=== PATIENT | female | born 1950 | race African-American/Black ===

== ENCOUNTER → 2016-10-18 | Outpatient (CLI) | payer MEDICARE, OTHER ==
[2016-10-19 10:41] LABS: ALANINE AMINOTRANSFERASE 49 U/L (9-52); ALBUMIN 3.8 g/dL (3.5-5.0); ALKALINE PHOSPHATASE 59 U/L (38-126); ASPARTATE AMINO TRANSFERASE 45 U/L (14-36); BILIRUBIN,TOTAL 0.4 mg/dL (0.2-1.3); CHOLESTEROL 162.54 mg/dL (0-200); CREATINE KINASE 114 U/L (30-135); Direct HDL 72 mg/dL (>40); TOTAL PROTEIN 6.6 g/dL (6.3-8.2); TRIGLYCERIDES 61 mg/dL (<150)
[2016-10-19 10:52] LABS: DIRECT LDL 77 mg/dL (<100)
== END ==
LOC: OD 09:47
PROVIDERS: ATTEND Internal Medicine Cardiovascular Disease
DX: E78.00 Pure hypercholesterolemia, unspecified (principal); R25.2 Cramp and spasm; Z79.899 Other long term (current) drug therapy
CPT/HCPCS: 36415; 80061; 80076; 82550

== ENCOUNTER → 2016-11-17 | Outpatient (CLI) | payer MEDICARE, OTHER | LOC: WI 09:00 | PROVIDERS: ATTEND Physician Assistant Medical | DX: Z12.31 Encounter for screening mammogram for malignant neoplasm of breast (principal) | CPT/HCPCS: 77067; G0202 ==

== ENCOUNTER → 2016-11-23 | Outpatient (CLI) | payer MEDICARE, OTHER ==
[2016-11-23 11:18] LABS: Direct HDL 71 mg/dL (>40); TRIGLYCERIDES 76 mg/dL (<150)
[2016-11-23 11:22] LABS: ALBUMIN 4.2 g/dL (3.5-5.0); BILIRUBIN,TOTAL 0.6 mg/dL (0.2-1.3); TOTAL PROTEIN 6.8 g/dL (6.3-8.2)
[2016-11-23 11:39] LABS: DIRECT LDL 73 mg/dL (<100)
== END ==
LOC: OD 09:40
PROVIDERS: ATTEND Internal Medicine Cardiovascular Disease
DX: E78.00 Pure hypercholesterolemia, unspecified (principal); R94.5 Abnormal results of liver function studies
CPT/HCPCS: 36415; 80061; 80076

== ENCOUNTER 2017-02-10 13:00 | Emergency (ER) | payer MEDICARE, OTHER ==
--- NOTE | 2017-02-10 14:14 | ER Document Report ---
ED Medical Screen (RME) - General Mode of Arrival: Ambulatory Information source: Patient TRAVEL OUTSIDE OF THE [place] IN LAST 30 DAYS: No - HPI Patient complains to provider of: swelling <ISAIAH YE - Last Filed: 02/10/17 16:33> <SONALI JOHANSEN - Last Filed: 02/10/17 21:19> - General Chief Complaint: Feet Swelling Stated Complaint: FEET/ANKLE SWELLING Time Seen by Provider: 02/10/17 14:10 Notes: Patient presents to the ED complaining of bilateral feet swelling. Patient took a long road trip on 01/29 and has had swelling since, saw Dr. Frank who told her to come in because she has not had swelling problems in the past. Patient reports some chest discomfort recently but it resolved. Patient has hx of heart disease and has had open heart surgery. (ISAIAH YE) - Related Data Allergies/Adverse Reactions: No Known Allergies Allergy (Verified 02/10/17 13:57) Past Medical History - General Information source: Patient - Social History Cigarette use (# per day): No Chew tobacco use (# tins/day): No Frequency of alcohol use: None Drug Abuse: None Family history: Reviewed & Not Pertinent - Past Medical History Cardiac Medical History: Reports: Hx Coronary Artery Disease, Hx Hypercholesterolemia, Hx Hypertension Renal/ Medical History: Denies: Hx Peritoneal Dialysis GI Medical History: Reports: Hx Gastroesophageal Reflux Disease Musculoskeltal Medical History: Reports Hx Arthritis Past Surgical History: Reports: Hx Cardiac Surgery - open heart bypass, Hx Coronary Artery Bypass Graft, Hx Thyroid Surgery, Hx Tubal Ligation <ISAIAH YE - Last Filed: 02/10/17 16:33> Review of Systems - Review of Systems Cardiovascular: See HPI, Edema <ISAIAH YE - Last Filed: 02/10/17 16:33> Physical Exam - Respiratory Respiratory status: No respiratory distress Chest status: Nontender Breath sounds: Normal Chest palpation: Normal - Cardiovascular Pulses: Normal: Dorsalis pedis - Extremities General lower extremity: Edema - 2+ pitting edema to feet bilaterally not extending past ankles <ISAIAH YE - Last Filed: 02/10/17 16:33> Course - Laboratory Result Diagrams: 02/10/17 14:25 02/10/17 14:25 <ISAIAH YE - Last Filed: 02/10/17 16:33> - Laboratory Result Diagrams: 02/10/17 14:25 02/10/17 14:25 <SONALI JOHANSEN - Last Filed: 02/10/17 21:19> - Vital Signs Vital signs: Temp Pulse Resp BP Pulse Ox 97.5 F 59 L 16 147/72 H 99 02/10/17 17:31 02/10/17 17:31 02/10/17 17:31 02/10/17 17:31 02/10/17 17:31 - Laboratory Laboratory results interpreted by me: 02/10/17 14:25 BUN 22 H Est GFR (Non-Af Amer) 55 L AST 50 H Creatine Kinase 174 H Doctor's Discharge <ISAIAH YE - Last Filed: 02/10/17 16:33> <SONALI JOHANSEN - Last Filed: 02/10/17 21:19> - Discharge Clinical Impression: Peripheral edema, Hypertension Condition: Stable Disposition: HOME, SELF-CARE Instructions: Edema, Peripheral ([facility]) Additional Instructions: There is no evidence of blood clots in your legs, there is also no evidence of fluid overload due to heart failure. Please use compression stockings and keep your feet elevated. Please follow up with your primary care physician as outpatient, if the swelling in your legs is really bothering you, they may wish to consider starting a short course of Lasix or other fluid pill. Return for chest pain or trouble breathing. Referrals: JACQUELINE ARBOLEDA PA-C [Primary Care Provider] - Follow up as needed Scribe Documentation - Scribe Written by Syd:: syd Harris, 02/10/17, 1423 acting as scribe for :: Doreen <ISAIAH YE - Last Filed: 02/10/17 16:33>
[2017-02-10 14:42] LABS: ABSOLUTE MONOCYTES (AUTO) 0.5 10^3/uL (0.1-1.4); ABSOLUTE NEUT (AUTO) 2.9 10^3/uL (1.7-8.2); BASOPHILS % (AUTO) 0.7 % (0-2); EOSINOPHILS % (AUTO) 0.6 % (0-6); HEMATOCRIT 40.6 % (36.0-47.0); HEMOGLOBIN 13.2 g/dL (12.0-15.5); LYMPHOCYTES % (AUTO) 22.9 % (13-45); MEAN CORPUSCULAR HEMOGLOBIN 30.4 pg (27.0-33.4); MEAN CORPUSCULAR HGB CONC 32.6 g/dL (32.0-36.0); MEAN CORPUSCULAR VOLUME 94 fl (80-97); MONOCYTES % (AUTO) 10.8 % (3-13); RED BLOOD COUNT 4.34 10^6/uL (3.72-5.28); RED CELL DISTRIBUTION WIDTH 13.1 % (11.5-14.0); WHITE BLOOD COUNT 4.5 10^3/uL (4.0-10.5)
[2017-02-10 14:54] LABS: PROTHROMBIN TIME 12.2 SEC (11.4-15.4)
[2017-02-10 15:07] LABS: ALANINE AMINOTRANSFERASE 48 U/L (9-52); ALBUMIN 4.4 g/dL (3.5-5.0); ALKALINE PHOSPHATASE 78 U/L (38-126); ANION GAP 14 (5-19); ASPARTATE AMINO TRANSFERASE 50 U/L (14-36); BILIRUBIN,DIRECT 0.4 mg/dL (0.0-0.4); BILIRUBIN,TOTAL 0.7 mg/dL (0.2-1.3); BLOOD UREA NITROGEN 22 mg/dL (7-20); CALCIUM 10.1 mg/dL (8.4-10.2); CARBON DIOXIDE 28 mmol/L (22-30); CHLORIDE 103 mmol/L (98-107); CREATINE KINASE 174 U/L (30-135); CREATININE RESULT 1.01 mg/dL (0.52-1.25); GLUCOSE 83 mg/dL (75-110); POTASSIUM 4.5 mmol/L (3.6-5.0); SODIUM 144.7 mmol/L (137-145); TOTAL PROTEIN 7.6 g/dL (6.3-8.2)
[2017-02-10 15:25] LABS: CREATINE KINASE MB 1.66 ng/mL (<4.55)
[2017-02-10 15:33] LABS: TROPONIN I < 0.012 ng/mL
--- NOTE | 2017-02-10 16:34 | ER Document Report ---
ED Extremity Problem, Lower - General Mode of Arrival: Ambulatory Information source: Patient TRAVEL OUTSIDE OF THE [place] IN LAST 30 DAYS: No - HPI Patient complains to provider of: Swelling Location: Foot Associated symptoms: Other - See above <ISAIAH YE - Last Filed: 02/10/17 16:34> - HPI Associated symptoms: denies: Hurts to breath, Rapid heart rate, Short of breath , Sweaty <SONALI JOHANSEN - Last Filed: 02/10/17 21:20> - General Chief Complaint: Feet Swelling Stated Complaint: FEET/ANKLE SWELLING Time Seen by Provider: 02/10/17 14:10 Notes: Patient is a 66 year old female, with a past medical history including heart disease, who presents to the ED complaining of bilateral foot swelling. Patient took a long road trip on 01/29 to [place] and has had swelling since. Patient saw Dr. Frank who told her to come in because she has not had swelling problems in the past. Patient reports some chest discomfort recently but it has resolved. Patient has had open heart surgery. (ISAIAH YE) - Related Data Allergies/Adverse Reactions: No Known Allergies Allergy (Verified 02/10/17 13:57) Past Medical History - General Information source: Patient - Social History Smoking Status: Never Smoker Chew tobacco use (# tins/day): No Frequency of alcohol use: None Drug Abuse: None Family History: Reviewed & Not Pertinent Patient has suicidal ideation: No Patient has homicidal ideation: No - Past Medical History Cardiac Medical History: Reports: Hx Coronary Artery Disease, Hx Hypercholesterolemia, Hx Hypertension GI Medical History: Reports: Hx Gastroesophageal Reflux Disease Musculoskeltal Medical History: Reports Hx Arthritis Past Surgical History: Reports: Hx Cardiac Surgery - open heart bypass, Hx Coronary Artery Bypass Graft, Hx Thyroid Surgery, Hx Tubal Ligation - Immunizations Hx Pneumococcal Vaccination: 10/03/14 <ISAIAH YE - Last Filed: 02/10/17 16:34> Review of Systems - Review of Systems Constitutional: No symptoms reported EENT: No symptoms reported Cardiovascular: See HPI, Chest pain, Edema Respiratory: No symptoms reported Gastrointestinal: No symptoms reported Genitourinary: No symptoms reported Female Genitourinary: No symptoms reported Musculoskeletal: No symptoms reported Skin: No symptoms reported Hematologic/Lymphatic: No symptoms reported Neurological/Psychological: No symptoms reported -: Yes All other systems reviewed and negative <ISAIAH YE - Last Filed: 02/10/17 16:34> Physical Exam - Vital signs Interpretation: Normal - General General appearance: Appears well, Alert - HEENT Head: Normocephalic, Atraumatic - Respiratory Respiratory status: No respiratory distress Chest status: Nontender Breath sounds: Normal Chest palpation: Normal - Cardiovascular Rhythm: Regular Heart sounds: Normal auscultation Murmur: No Pulses: Normal: Dorsalis pedis - Back Back: Normal, Nontender - Extremities General upper extremity: Normal inspection General lower extremity: Edema - 2+ pitting edema bilaterally in feet no extending past ankle - Neurological Neuro grossly intact: Yes Cognition: Normal Orientation: AAOx4 [place] Coma Scale Eye Opening: Spontaneous [place] Coma Scale Verbal: Oriented [place] Coma Scale Motor: Obeys Commands [place] Coma Scale Total: 15 - Psychological Associated symptoms: Normal affect, Normal mood - Skin Skin Temperature: Warm Skin Moisture: Dry Skin Color: Normal <YEISAIAH - Last Filed: 02/10/17 16:34> Course - Laboratory Result Diagrams: 02/10/17 14:25 02/10/17 14:25 <ISAIAH YE - Last Filed: 02/10/17 16:34> - Laboratory Result Diagrams: 02/10/17 14:25 02/10/17 14:25 <SONALI JOHANSEN - Last Filed: 02/10/17 21:20> - Re-evaluation Re-evalutation: 02/10/17 16:40 CBC unremarkable, coags normal, CMP grossly unremarkable with only slightly elevated BUN, GFR normal for an -[place] female, cardiac enzymes negative, BNP normal. Venous Doppler does not show any signs of DVT. Chest x- ray does not show any vascular congestion. 02/10/17 16:41 No evidence of heart failure or DVT, likely dependent edema from this road trip. No chest pain noted, no evidence of acute coronary syndrome. Patient will be discharged home. (SONALI JOHANSEN) - Vital Signs Vital signs: Temp Pulse Resp BP Pulse Ox 97.5 F 59 L 16 147/72 H 99 02/10/17 17:31 02/10/17 17:31 02/10/17 17:31 02/10/17 17:31 02/10/17 17:31 - Laboratory Laboratory results interpreted by me: 02/10/17 14:25 BUN 22 H Est GFR (Non-Af Amer) 55 L AST 50 H Creatine Kinase 174 H - EKG Interpretation by Me Additional EKG results interpreted by me: 02/10/17 16:40 EKG shows sinus rhythm at a rate of 61, first-degree AV block, left ventricular hypertrophy, left axis deviation, no ST segment elevations or depressions, there are T wave inversions isolated in lead 3 per my interpretation. (SONALI JOHANSEN) Discharge <ISAIAH YE - Last Filed: 02/10/17 16:34> <SONALI JOHANSEN - Last Filed: 02/10/17 21:20> - Discharge Clinical Impression: Peripheral edema Hypertension Qualifiers: Hypertension type: essential hypertension Qualified Code(s): I10 - Essential ( primary) hypertension Condition: Stable Disposition: HOME, SELF-CARE Instructions: Edema, Peripheral ([facility]) Additional Instructions: There is no evidence of blood clots in your legs, there is also no evidence of fluid overload due to heart failure. Please use compression stockings and keep your feet elevated. Please follow up with your primary care physician as outpatient, if the swelling in your legs is really bothering you, they may wish to consider starting a short course of Lasix or other fluid pill. Return for chest pain or trouble breathing. Referrals: JACQUELINE ARBOLEDA PA-C [Primary Care Provider] - Follow up as needed Scribe Attestation: 02/10/17 21:20 I personally performed the services described in the documentation, reviewed and edited the documentation which was dictated to the scribe in my presence, and it accurately records my words and actions. (SONALI JOHANSEN) Scribe Documentation - Scribe Written by Syd:: syd Harris, 02/10/17, [id number] acting as scribe for :: Doreen <ISAIAH YE - Last Filed: 02/10/17 16:34>
[2017-02-10 17:40] VITALS: BP 147/72
--- NOTE | 2017-02-11 13:44 | EKG REPORT ---
SEVERITY:- ABNORMAL ECG - SINUS RHYTHM FIRST DEGREE AV BLOCK LEFT VENTRICULAR HYPERTROPHY : Confirmed by: Gina Vickers 11-Feb-2017 13:43:38
== END 2017-02-10 17:35 | disposition home or self-care (01) ==
LOC: ER 13:00
DX: R60.9 Edema, unspecified (principal); I10 Essential (primary) hypertension; I25.10 Atherosclerotic heart disease of native coronary artery without angina pectoris; E78.00 Pure hypercholesterolemia, unspecified; K21.9 Gastro-esophageal reflux disease without esophagitis; Z95.1 Presence of aortocoronary bypass graft; Z98.51 Tubal ligation status
CPT/HCPCS: 36415; 71020; 80053; 82550; 82553; 83880; 84484; 85025; 85610; 93005; 93010; 93970; 99284

== ENCOUNTER → 2017-06-28 | Outpatient (CLI) | payer MEDICARE, OTHER ==
[2017-06-28 11:02] LABS: ANION GAP 8 (5-19); BLOOD UREA NITROGEN 19 mg/dL (7-20); CARBON DIOXIDE 28 mmol/L (22-30); CHLORIDE 105 mmol/L (98-107); CHOLESTEROL 163.76 mg/dL (0-200); CREATININE RESULT 0.98 mg/dL (0.52-1.25); Direct HDL 61 mg/dL (>40); GLUCOSE 89 mg/dL (75-110); POTASSIUM 4.8 mmol/L (3.6-5.0); SODIUM 141.2 mmol/L (137-145); TRIGLYCERIDES 87 mg/dL (<150)
[2017-06-28 11:13] LABS: DIRECT LDL 78 mg/dL (<100)
== END ==
LOC: OD 08:54
PROVIDERS: ATTEND Internal Medicine Cardiovascular Disease
DX: E78.00 Pure hypercholesterolemia, unspecified (principal); R22.43 Localized swelling, mass and lump, lower limb, bilateral
CPT/HCPCS: 36415; 80048; 80061

== ENCOUNTER → 2017-07-26 | Outpatient (CLI) | payer MEDICARE, OTHER ==
--- NOTE | 2017-07-26 17:54 | WOMENS IMAGING REPORT ---
EXAM DESCRIPTION: 3D DX MAMMO BILAT; U/S BREAST UNILAT LIMITED COMPLETED DATE/TIME: 07/26/2017 8:42 am; 07/26/2017 9:09 am REASON FOR STUDY: MASTODYNIA; N64.4; LEFT BREAST LUMP N63.0 N64.4 MASTODYNIA COMPARISON: Multiple since 2008 TECHNIQUE: Standard craniocaudal and mediolateral oblique views of each breast recorded using digita l acquisition and breast tomosynthesis. Bilateral 90 mediolateral views. Because of a palpable abnormality in the left axilla, left upper o uter quadrant at axilla ultrasound was performed. LIMITATIONS: None. FINDINGS: RIGHT BREAST MASSES: No suspicious masses. CALCIFICATIONS: No new or suspicious calcifications. ARCHITECTURAL DISTORTION: None. DEVELOPING DENSITY: None. ASYMMETRY: None noted. OTHER: No other significant findings. LEFT BREAST MASSES: No suspicious masses. CALCIFICATIONS: No new or suspicious calcifications. ARCHITECTURAL DISTORTION: None. DEVELOPING DENSITY: None. ASYMMETRY: None noted. OTHER: No other significant finding. Read with the assistance of CAD: .[facility] - R2 Cenova Version 1.3 .[facility] Imaging - R2 Cenova Version 1.3 .[facility] - R2 Cenova Version 2.4 .[facility] Cenova Version 2.4 .[facility] - R2 Potato Seed Cutter Version 9.2 Left breast and axilla ultrasound: Ultrasound of the upper outer quadrant and left axilla was performed. No worrisome masses. No cysts . No acoustic absorption. Benign-appearing 10 x 6 mm and 15 x 8 mm lymph nodes are present in the l eft axilla, with normal cortical thickness and central hilar fat. IMPRESSION: No mammographic/tomosynthesis evidence for malignancy bilaterally. No ultrasound evidence for malignancy left axilla and upper outer quadrant breast. BREAST DENSITY: c. The breasts are heterogeneously dense, which may obscure small masses. BIRAD: 1 Negative. RECOMMENDATION: RECOMMENDED FOLLOW UP: Please continue yearly bilateral screening mammography/ tomos ynthesis in July 2018. SPECIFIC INTERVENTION/IMAGING/CONSULTATION RECOMMENDED:No additional intervention/ imaging/consultati on needed at this time. COMMUNICATION:Patient notified by letter COMMENT: The patient has been notified of the results by letter per MQSA requirements. Additional no tification policies are in place for contacting patient with suspicious or incomplete findings. Quality ID #[id number]: The [employer] recommends an annual screening mammogram for women aged 40 years or over. This facility utilizes a reminder system to ensure that all patients receive reminder letters, and/or direct phone calls for appointments. This includes reminders for routine scr eening mammograms, diagnostic mammograms, or other Breast Imaging Interventions when appropriate. Th is patient will be placed in the appropriate reminder system. The [employer] (ACR) has developed recommendations for screening MRI of the breast s in certain patient populations, to be used in conjunction with mammography. Breast MRI surveillanc e may be appropriate for women with more than 20% lifetime risk of developing breast cancer as deter mined by genetic testing, significant family history of the disease, or history of mantle radiation f or Hodgkins Disease. ACR Practice Guidelines 2008. DBT Technology DBT is a type of tomographic mammography. With conventional mammography, overlapping breast tissue ma y make lesions difficult to detect, even with good compression. DBT uses an x-ray tube that rotates a round the breast, taking images at different angles. These images are then combined to create thin sl ices of the breast that the radiologist can view as a 3D reconstruction. The [employer] unit can perform full-field digital mammograms (2D imaging); or DBT (3D imaging); or both, in a combination mode that quickly performs both the mammogram and the tomosynthesis scan while the breast is still compressed. PQRS 6045F: Fluoroscopic imaging is not utilized for breast tomosynthesis. TECHNICAL DOCUMENTATION: FINDING NUMBER: (1) ASSESSMENT: (1) JOB ID: [id number] [employer]- All Rights Reserved
--- NOTE | 2017-07-26 17:54 | WOMENS IMAGING REPORT ---
EXAM DESCRIPTION: 3D DX MAMMO BILAT; U/S BREAST UNILAT LIMITED COMPLETED DATE/TIME: 07/26/2017 8:42 am; 07/26/2017 9:09 am REASON FOR STUDY: MASTODYNIA; N64.4; LEFT BREAST LUMP N63.0 N64.4 MASTODYNIA COMPARISON: Multiple since 2008 TECHNIQUE: Standard craniocaudal and mediolateral oblique views of each breast recorded using digita l acquisition and breast tomosynthesis. Bilateral 90 mediolateral views. Because of a palpable abnormality in the left axilla, left upper o uter quadrant at axilla ultrasound was performed. LIMITATIONS: None. FINDINGS: RIGHT BREAST MASSES: No suspicious masses. CALCIFICATIONS: No new or suspicious calcifications. ARCHITECTURAL DISTORTION: None. DEVELOPING DENSITY: None. ASYMMETRY: None noted. OTHER: No other significant findings. LEFT BREAST MASSES: No suspicious masses. CALCIFICATIONS: No new or suspicious calcifications. ARCHITECTURAL DISTORTION: None. DEVELOPING DENSITY: None. ASYMMETRY: None noted. OTHER: No other significant finding. Read with the assistance of CAD: .[facility] - R2 Cenova Version 1.3 .[facility] Imaging - R2 Cenova Version 1.3 .[facility] Imaging - R2 Cenova Version 2.4 .[facility] - R2 Cenova Version 2.4 .[facility] - R2 Complaint Analyst Version 9.2 Left breast and axilla ultrasound: Ultrasound of the upper outer quadrant and left axilla was performed. No worrisome masses. No cysts . No acoustic absorption. Benign-appearing 10 x 6 mm and 15 x 8 mm lymph nodes are present in the l eft axilla, with normal cortical thickness and central hilar fat. IMPRESSION: No mammographic/tomosynthesis evidence for malignancy bilaterally. No ultrasound evidence for malignancy left axilla and upper outer quadrant breast. BREAST DENSITY: c. The breasts are heterogeneously dense, which may obscure small masses. BIRAD: 1 Negative. RECOMMENDATION: RECOMMENDED FOLLOW UP: Please continue yearly bilateral screening mammography/ tomos ynthesis in July 2018. SPECIFIC INTERVENTION/IMAGING/CONSULTATION RECOMMENDED:No additional intervention/ imaging/consultati on needed at this time. COMMUNICATION:Patient notified by letter COMMENT: The patient has been notified of the results by letter per MQSA requirements. Additional no tification policies are in place for contacting patient with suspicious or incomplete findings. Quality ID #[id number]: The [employer] recommends an annual screening mammogram for women aged 40 years or over. This facility utilizes a reminder system to ensure that all patients receive reminder letters, and/or direct phone calls for appointments. This includes reminders for routine scr eening mammograms, diagnostic mammograms, or other Breast Imaging Interventions when appropriate. Th is patient will be placed in the appropriate reminder system. The [employer] (ACR) has developed recommendations for screening MRI of the breast s in certain patient populations, to be used in conjunction with mammography. Breast MRI surveillanc e may be appropriate for women with more than 20% lifetime risk of developing breast cancer as deter mined by genetic testing, significant family history of the disease, or history of mantle radiation f or Hodgkins Disease. ACR Practice Guidelines 2008. DBT Technology DBT is a type of tomographic mammography. With conventional mammography, overlapping breast tissue ma y make lesions difficult to detect, even with good compression. DBT uses an x-ray tube that rotates a round the breast, taking images at different angles. These images are then combined to create thin sl ices of the breast that the radiologist can view as a 3D reconstruction. The [employer] unit can perform full-field digital mammograms (2D imaging); or DBT (3D imaging); or both, in a combination mode that quickly performs both the mammogram and the tomosynthesis scan while the breast is still compressed. PQRS 6045F: Fluoroscopic imaging is not utilized for breast tomosynthesis. TECHNICAL DOCUMENTATION: FINDING NUMBER: (1) ASSESSMENT: (1) JOB ID: [id number] [employer]- All Rights Reserved
== END ==
LOC: WI 08:16
PROVIDERS: ATTEND Physician Assistant Medical
DX: N64.4 Mastodynia (principal)
CPT/HCPCS: 76642; G0279; G0204; 77062; 77066

== ENCOUNTER → 2017-12-29 | Outpatient (CLI) | payer MEDICARE, OTHER ==
[2017-12-29 09:14] LABS: ALANINE AMINOTRANSFERASE 39 U/L (9-52); ALBUMIN 4.2 g/dL (3.5-5.0); ALKALINE PHOSPHATASE 69 U/L (38-126); ANION GAP 7 (5-19); ASPARTATE AMINO TRANSFERASE 36 U/L (14-36); BILIRUBIN,DIRECT 0.2 mg/dL (0.0-0.4); BILIRUBIN,TOTAL 0.4 mg/dL (0.2-1.3); BLOOD UREA NITROGEN 19 mg/dL (7-20); CALCIUM 9.6 mg/dL (8.4-10.2); CARBON DIOXIDE 30 mmol/L (22-30); CHLORIDE 107 mmol/L (98-107); CHOLESTEROL 159.78 mg/dL (0-200); GLUCOSE 88 mg/dL (75-110); POTASSIUM 4.3 mmol/L (3.6-5.0); TRIGLYCERIDES 82 mg/dL (<150)
[2017-12-29 09:25] LABS: DIRECT LDL 79 mg/dL (<100)
== END ==
LOC: OD 08:22
PROVIDERS: ATTEND Internal Medicine Cardiovascular Disease
DX: I25.118 Atherosclerotic heart disease of native coronary artery with other forms of angina pectoris (principal); E78.00 Pure hypercholesterolemia, unspecified; I10 Essential (primary) hypertension; Z79.899 Other long term (current) drug therapy
CPT/HCPCS: 36415; 80048; 80061; 80076

== ENCOUNTER → 2018-06-21 | Outpatient (CLI) | payer MEDICARE, OTHER ==
[2018-06-21 10:05] LABS: HEMATOCRIT 38.4 % (36.0-47.0); HEMOGLOBIN 12.8 g/dL (12.0-15.5); MEAN CORPUSCULAR HEMOGLOBIN 30.7 pg (27.0-33.4); MEAN CORPUSCULAR HGB CONC 33.2 g/dL (32.0-36.0); MEAN CORPUSCULAR VOLUME 92 fl (80-97); PLATELET COUNT 184 10^3/uL (150-450); RED BLOOD COUNT 4.16 10^6/uL (3.72-5.28); RED CELL DISTRIBUTION WIDTH 13.5 % (11.5-14.0); WHITE BLOOD COUNT 5.2 10^3/uL (4.0-10.5)
[2018-06-21 10:20] LABS: ALANINE AMINOTRANSFERASE 40 U/L (9-52); ALBUMIN 4.1 g/dL (3.5-5.0); ALKALINE PHOSPHATASE 71 U/L (38-126); ANION GAP 6 (5-19); ASPARTATE AMINO TRANSFERASE 40 U/L (14-36); BILIRUBIN,DIRECT 0.4 mg/dL (0.0-0.4); BILIRUBIN,TOTAL 0.6 mg/dL (0.2-1.3); BLOOD UREA NITROGEN 16 mg/dL (7-20); CALCIUM 9.5 mg/dL (8.4-10.2); CARBON DIOXIDE 32 mmol/L (22-30); CHLORIDE 105 mmol/L (98-107); CHOLESTEROL 164.14 mg/dL (0-200); GLUCOSE 93 mg/dL (75-110); POTASSIUM 4.5 mmol/L (3.6-5.0); SODIUM 142.5 mmol/L (137-145); TRIGLYCERIDES 92 mg/dL (<150)
[2018-06-21 10:31] LABS: DIRECT LDL 80 mg/dL (<100)
== END ==
LOC: LAB 09:02
PROVIDERS: ATTEND Internal Medicine Cardiovascular Disease
DX: E78.00 Pure hypercholesterolemia, unspecified (principal); R00.2 Palpitations; Z79.899 Other long term (current) drug therapy
CPT/HCPCS: 36415; 80048; 80061; 80076; 83735; 84443; 85027

== ENCOUNTER → 2018-07-27 | Outpatient (CLI) | payer MEDICARE, OTHER ==
--- NOTE | 2018-07-27 14:39 | WOMENS IMAGING REPORT ---
EXAM DESCRIPTION: 3D SCREENING MAMMO BILAT COMPLETED DATE/TIME: 07/27/2018 10:34 am REASON FOR STUDY: ROUTINE SCREENING MAMMOGRAM Z12.31 Z12.31 ENCNTR SCREEN MAMMOGRAM FOR MALIGNANT N EOPLASM OF FELIZ COMPARISON: Multiple since 2008 TECHNIQUE: Standard craniocaudal and mediolateral oblique views of each breast recorded using digita l acquisition and breast tomosynthesis. LIMITATIONS: None. FINDINGS: No masses, calcifications or architectural distortion. No areas of suspicion. Read with the assistance of CAD. .[facility] - R2 Cenova Version 1.3 .[facility] Imaging - R2 Cenova Version 1.3 .[facility] Imaging - R2 Cenova Version 2.4 .[facility] [place] R2 Cenova Version 2.4 .[facility] - R2 Department [employer] Router Version 9.2 IMPRESSION: NORMAL MAMMOGRAM. BIRADS 1. BREAST DENSITY: c. The breasts are heterogeneously dense, which may obscure small masses. BIRAD: 1 NEGATIVE RECOMMENDATION: ROUTINE SCREENING Please continue yearly bilateral screening mammography/tomosynthesis in July 2019 COMMENT: The patient has been notified of the results by letter per [place] requirements. Additional no tification policies are in place for contacting patient with suspicious or incomplete findings. Quality ID #[id number]: The [employer] recommends an annual screening mammogram for women aged 40 years or over. This facility utilizes a reminder system to ensure that all patients receive reminder letters, and/or direct phone calls for appointments. This includes reminders for routine scr eening mammograms, diagnostic mammograms, or other Breast Imaging Interventions when appropriate. Th is patient will be placed in the appropriate reminder system. The [employer] (ACR) has developed recommendations for screening MRI of the breast s in certain patient populations, to be used in conjunction with mammography. Breast MRI surveillanc e may be appropriate for women with more than 20% lifetime risk of developing breast cancer as deter mined by genetic testing, significant family history of the disease, or history of mantle radiation f or Hodgkins Disease. ACR Practice Guidelines 2008. DBT Technology DBT is a type of tomographic mammography. With conventional mammography, overlapping breast tissue ma y make lesions difficult to detect, even with good compression. DBT uses an x-ray tube that rotates a round the breast, taking images at different angles. These images are then combined to create thin sl ices of the breast that the radiologist can view as a 3D reconstruction. The [employer] unit can perform full-field digital mammograms (2D imaging); or DBT (3D imaging); or both, in a combination mode that quickly performs both the mammogram and the tomosynthesis scan while the breast is still compressed. PQRS 6045F: Fluoroscopic imaging is not utilized for breast tomosynthesis. TECHNICAL DOCUMENTATION: FINDING NUMBER: (1) ASSESSMENT: (1) JOB ID: [id number] [employer]- All Rights Reserved Reading location - IP/workstation name: [facility]-2
== END ==
LOC: WI 11:37
PROVIDERS: ATTEND Physician Assistant Medical
DX: Z12.31 Encounter for screening mammogram for malignant neoplasm of breast (principal)
CPT/HCPCS: 77063; 77067

== ENCOUNTER 2018-08-10 16:51 | Emergency (ER) | payer MEDICARE, OTHER ==
[2018-08-10 17:08] VITALS: BP 166/61
[2018-08-10] MEDS ORDERED: LIDOCAINE 2% VISCOUS SOLN 20 ML UDCUP PO ONE (17:27)
[2018-08-10] MEDS ORDERED: MAG HYDROX/AL HYDROX/SIMETH SUSP 30 ML UDCUP PO ONE (17:27)
[2018-08-10] MEDS ORDERED: METOCLOPRAMIDE HCL ORAL SOLN 10 MG/10 ML UDCUP PO ONE (17:27)
--- NOTE | 2018-08-10 17:39 | ER Document Report ---
ED GI/ - General Chief Complaint: Epigastric Pain Stated Complaint: ABDOMINAL PAIN Time Seen by Provider: 08/10/18 17:27 Mode of Arrival: Ambulatory Information source: Patient Notes: Chief complaint: abdominal pain: History of complain:( obtained from----patient) 67 years old female with a history of GERD, not taking omeprazole, just prior to arrival about an hour and a half , developed sharp epigastric pain moderate to severe in intensity therefore present to the ED. Denies any nausea vomiting diarrhea. Denies any fever chills or other constitutional symptoms. Onset: Sudden Duration: Few hours Severity: Severe Quality: Sharp Context: Good Exacerbating factor and relieving factors: Eating REVIEW OF SYSTEMS: CONSTITUTIONAL : Denies fever, chills, or sweats. Denies recent illness. EENT: Denies eye, ear, throat, or mouth pain or symptoms. Denies nasal or sinus congestion or discharge. Denies throat, tongue, or mouth swelling or difficulty swallowing. CARDIOVASCULAR: Denies chest pain. Denies palpitations or racing or irregular heart beat. Denies ankle edema. RESPIRATORY: Denies cough, cold, or chest congestion. Denies shortness of breath, difficulty breathing, or wheezing. GASTROINTESTINAL: Denies distention. Denies nausea, vomiting, or diarrhea. Denies blood in vomitus, stools, or per rectum. Denies black, tarry stools. Denies constipation. GENITOURINARY: Denies difficulty urinating, painful urination, burning, frequency, blood in urine, or discharge. FEMALE GENITOURINARY: Denies vaginal bleeding, heavy or abnormal periods, irregular periods. Denies vaginal discharge or odor. MUSCULOSKELETAL: Denies back or neck pain or stiffness. Denies joint pain or swelling. SKIN: Denies rash, lesions or sores. HEMATOLOGIC : Denies easy bruising or bleeding. LYMPHATIC: Denies swollen, enlarged glands. NEUROLOGICAL: Denies confusion or altered mental status. Denies passing out or loss of consciousness. Denies dizziness or lightheadedness. Denies headache. Denies weakness or paralysis or loss of use of either side. Denies problems with gait or speech. Denies sensory loss, numbness, or tingling. Denies seizures. PSYCHIATRIC: Denies anxiety or stress. Denies depression, suicidal ideation, or homicidal ideation. ALL OTHER SYSTEMS REVIEWED AND NEGATIVE. PHYSICAL EXAMINATION: GENERAL: Well-appearing, well-nourished and in no acute distress. HEAD: Atraumatic, normocephalic. EYES: Pupils equal round and reactive to light, extraocular movements intact, conjunctiva are normal. ENT: Nares patent, oropharynx clear without exudates. Moist mucous membranes. NECK: Normal range of motion, supple without lymphadenopathy LUNGS: Breath sounds clear to auscultation bilaterally and equal. No wheezes rales or rhonchi. HEART: Regular rate and rhythm without murmurs ABDOMEN: Soft, epigastric tenderness noted, nondistended abdomen. No guarding, no rebound. No masses appreciated. Female : deferred Musculoskeletal: Normal range of motion, no pitting or edema. No cyanosis. NEUROLOGICAL: Cranial nerves grossly intact. Normal speech, normal gait. Normal sensory, motor exams PSYCH: Normal mood, normal affect. SKIN: Warm, Dry, normal turgor, no rashes or lesions noted. Dictation was performed using [employer] voice recognition software TRAVEL OUTSIDE OF THE [place] IN LAST 30 DAYS: No - HPI Notes: 08/10/18 17:38 Dictated - Related Data Allergies/Adverse Reactions: No Known Allergies Allergy (Verified 08/10/18 16:54) Past Medical History - Social History Smoking Status: Never Smoker Frequency of alcohol use: Rare Lives with: Family Family History: Reviewed & Not Pertinent Patient has suicidal ideation: No Patient has homicidal ideation: No - Past Medical History Cardiac Medical History: Reports: Hx Coronary Artery Disease, Hx Hypercholesterolemia, Hx Hypertension Renal/ Medical History: Denies: Hx Peritoneal Dialysis GI Medical History: Reports: Hx Gastroesophageal Reflux Disease Musculoskeletal Medical History: Reports Hx Arthritis Past Surgical History: Reports: Hx Cardiac Surgery - open heart bypass, Hx Coronary Artery Bypass Graft, Hx Thyroid Surgery, Hx Tubal Ligation - Immunizations Hx Pneumococcal Vaccination: 10/03/14 Review of Systems - Review of Systems Notes: Dictated Physical Exam - Vital signs Vitals: Temp Pulse Resp BP Pulse Ox 97.9 F 45 L 20 166/61 H 100 08/10/18 17:06 08/10/18 17:06 08/10/18 17:06 08/10/18 17:06 08/10/18 17:06 - Notes Notes: Dictated Course - Re-evaluation Re-evalutation: 08/10/18 17:53 GI cocktail has completely relieved her abdominal pain. - Vital Signs Vital signs: Temp Pulse Resp BP Pulse Ox 97.9 F 45 L 20 166/61 H 100 08/10/18 17:06 08/10/18 17:06 08/10/18 17:06 08/10/18 17:06 08/10/18 17:06 Discharge - Discharge Clinical Impression: Gastritis Qualifiers: Gastritis type: other gastritis Chronicity: acute Gastritis bleeding: without bleeding Qualified Code(s): K29.00 - Acute gastritis without bleeding Condition: Fair Disposition: HOME, SELF-CARE Instructions: Gastritis ([facility]) Prescriptions: Lansoprazole [Prevacid 30 Mg Odt Tablet] 30 mg PO ACBRKFST #30 tab.rap. Sucralfate [Carafate 1 gm Tablet] 1 gm PO ACHS #120 tablet Referrals: JACQUELINE THAKUR PA-C [Primary Care Provider] - Follow up as needed
--- NOTE | 2018-08-10 18:17 | EKG REPORT ---
SEVERITY:- ABNORMAL ECG - SINUS RHYTHM FIRST DEGREE AV BLOCK LVH WITH SECONDARY REPOLARIZATION ABNORMALITY : Confirmed by: Grupo Frank MD 10-Aug-2018 18:17:07
== END 2018-08-10 18:00 | disposition home or self-care (01) ==
LOC: ER 16:51
DX: K29.00 Acute gastritis without bleeding (principal); R10.13 Epigastric pain; I25.10 Atherosclerotic heart disease of native coronary artery without angina pectoris; E78.00 Pure hypercholesterolemia, unspecified; I10 Essential (primary) hypertension; Z95.1 Presence of aortocoronary bypass graft; Z98.51 Tubal ligation status
CPT/HCPCS: 93005; 99284; 93010; J3490; A9270

== ENCOUNTER → 2018-09-05 | Outpatient (CLI) | payer MEDICARE, OTHER | LOC: OD 10:50 | PROVIDERS: ATTEND Physician Assistant Medical | DX: Z11.59 Encounter for screening for other viral diseases (principal) | CPT/HCPCS: 36415; 86803; 86804 ==

== ENCOUNTER → 2018-12-15 | Outpatient (CLI) | payer MEDICARE, OTHER ==
--- NOTE | 2018-12-15 12:26 | RADIOLOGY REPORT (SQ) ---
EXAM DESCRIPTION: CT ABDOMEN WITH IV ORAL CONT COMPLETED DATE/TIME: 12/15/2018 9:53 am REASON FOR STUDY: EPIGASTRIC PAIN R10.13 EPIGASTRIC PAIN COMPARISON: 06/10/2016 TECHNIQUE: CT scan of the abdomen performed with intravenous and oral contrast using helical scannin g technique with dynamic intravenous contrast injection. Images reviewed with lung, soft tissue, and bone windows. Reconstructed coronal and sagittal MPR images reviewed. Delayed images for evaluation o f the urinary system also acquired. All images stored on PACS. All CT scanners at this facility use dose modulation, iterative reconstruction, and/or weight based d osing when appropriate to reduce radiation dose to as low as reasonably achievable (ALARA). [facility]: Dose Right [facility]: CareDose [facility]: Dose Right [facility]: Teradose 4D [facility]: T[employer] Monster ([place]) CONTRAST TYPE AND DOSE: contrast/concentration: Isovue 350.00 mg/ml; Total Contrast Delivered: 85.0 ml; Total Saline Delivered: 69.0 ml RENAL FUNCTION: Creatinine 1.2 RADIATION DOSE: CT Rad equipment meets quality standard of care and radiation dose reduction techniq ues were employed. CTDIvol: 6.1 - 7.2 mGy. DLP: 406 mGy-cm. . LIMITATIONS: None. FINDINGS: LOWER CHEST: 7 mm nodule right lower lobe unchanged LIVER: Normal size. No masses. No dilated ducts. SPLEEN: Normal size. No focal lesions. PANCREAS: No masses. No significant calcifications. No adjacent inflammation or peripancreatic fluid collections. Pancreatic duct not dilated. GALLBLADDER: Gallstones. No inflammatory changes to suggest cholecystitis. ADRENAL GLANDS: No significant masses or asymmetry. RIGHT KIDNEY AND URETER: No solid masses. No significant calcifications. No hydronephrosis or hyd roureter. LEFT KIDNEY AND URETER: No solid masses. No significant calcifications. No hydronephrosis or hydr oureter. AORTA AND VESSELS: No aneurysm. RETROPERITONEUM: No retroperitoneal adenopathy, hemorrhage or masses. BOWEL AND PERITONEAL CAVITY: No obstruction. No visualized masses. No free fluid. No inflammatory ch anges or thickening of bowel wall. APPENDIX: Not visualized. PELVIS: Not imaged. ABDOMINAL WALL: No masses. No hernias. BONES: Nothing acute. OTHER: No other significant finding. IMPRESSION: Cholelithiasis. No acute findings. TECHNICAL DOCUMENTATION: JOB ID: [id number] Quality ID # [id number]: Final reports with documentation of one or more dose reduction techniques (e.g., Au tomated exposure control, adjustment of the mA and/or kV according to patient size, use of iterative reconstruction technique) 2010 [employer]- All Rights Reserved Reading location - IP/workstation name: [email or web address]
== END ==
LOC: RAD 09:05
PROVIDERS: ATTEND Internal Medicine Gastroenterology
DX: R10.13 Epigastric pain (principal)
CPT/HCPCS: 74160; 82565

== ENCOUNTER → 2018-12-19 | Outpatient (CLI) | payer MEDICARE, OTHER ==
[2018-12-19 09:45] LABS: HEMATOCRIT 37.8 % (36.0-47.0); HEMOGLOBIN 12.8 g/dL (12.0-15.5); MEAN CORPUSCULAR HEMOGLOBIN 30.7 pg (27.0-33.4); MEAN CORPUSCULAR HGB CONC 33.9 g/dL (32.0-36.0); MEAN CORPUSCULAR VOLUME 91 fl (80-97); PLATELET COUNT 181 10^3/uL (150-450); RED BLOOD COUNT 4.18 10^6/uL (3.72-5.28)
[2018-12-19 10:13] LABS: ALANINE AMINOTRANSFERASE 38 U/L (9-52); ALBUMIN 4.6 g/dL (3.5-5.0); ALKALINE PHOSPHATASE 76 U/L (38-126); ANION GAP 8 (5-19); ASPARTATE AMINO TRANSFERASE 39 U/L (14-36); BILIRUBIN,DIRECT 0.3 mg/dL (0.0-0.4); BILIRUBIN,TOTAL 0.6 mg/dL (0.2-1.3); BLOOD UREA NITROGEN 19 mg/dL (7-20); CALCIUM 9.8 mg/dL (8.4-10.2); CARBON DIOXIDE 29 mmol/L (22-30); CHLORIDE 103 mmol/L (98-107); CHOLESTEROL 165.24 mg/dL (0-200); GLUCOSE 89 mg/dL (75-110); POTASSIUM 4.2 mmol/L (3.6-5.0); SODIUM 139.8 mmol/L (137-145); TOTAL PROTEIN 7.2 g/dL (6.3-8.2); TRIGLYCERIDES 86 mg/dL (<150)
[2018-12-19 10:24] LABS: DIRECT LDL 85 mg/dL (<100)
== END ==
LOC: OD 08:38
PROVIDERS: ATTEND Internal Medicine Cardiovascular Disease
DX: E78.00 Pure hypercholesterolemia, unspecified (principal); I10 Essential (primary) hypertension; E03.9 Hypothyroidism, unspecified; Z79.899 Other long term (current) drug therapy
CPT/HCPCS: 36415; 80048; 80061; 80076; 84443; 85027

== ENCOUNTER → 2019-01-24 | Outpatient (CLI) | payer MEDICARE, OTHER ==
[2019-01-24 08:47] LABS: INTERNATIONAL RATION (INR) 0.85; PROTHROMBIN TIME 12.1 SEC (11.4-15.4)
== END ==
LOC: OD 07:19
PROVIDERS: ATTEND Internal Medicine Cardiovascular Disease
DX: I25.119 Atherosclerotic heart disease of native coronary artery with unspecified angina pectoris (principal); Z79.01 Long term (current) use of anticoagulants; Z79.899 Other long term (current) drug therapy
CPT/HCPCS: 36415; 85610; 85730

== ENCOUNTER 2019-03-09 05:26 | Day surgery (SDC) | payer MEDICARE, OTHER ==
[2019-03-01 09:30] LABS: HEMATOCRIT 38.3 % (36.0-47.0); HEMOGLOBIN 12.8 g/dL (12.0-15.5); MEAN CORPUSCULAR HEMOGLOBIN 30.7 pg (27.0-33.4); MEAN CORPUSCULAR HGB CONC 33.4 g/dL (32.0-36.0); MEAN CORPUSCULAR VOLUME 92 fl (80-97); PLATELET COUNT 175 10^3/uL (150-450); RED BLOOD COUNT 4.16 10^6/uL (3.72-5.28); RED CELL DISTRIBUTION WIDTH 13.5 % (11.5-14.0); WHITE BLOOD COUNT 5.1 10^3/uL (4.0-10.5)
[2019-03-01 10:00] LABS: ALANINE AMINOTRANSFERASE 35 U/L (9-52); ALBUMIN 4.5 g/dL (3.5-5.0); ALKALINE PHOSPHATASE 77 U/L (38-126); ANION GAP 10 (5-19); ASPARTATE AMINO TRANSFERASE 34 U/L (14-36); BILIRUBIN,DIRECT 0.3 mg/dL (0.0-0.4); BILIRUBIN,TOTAL 0.5 mg/dL (0.2-1.3); BLOOD UREA NITROGEN 16 mg/dL (7-20); CARBON DIOXIDE 28 mmol/L (22-30); CHLORIDE 105 mmol/L (98-107); GLUCOSE 88 mg/dL (75-110); SODIUM 142.8 mmol/L (137-145); TOTAL PROTEIN 7.4 g/dL (6.3-8.2)
[~2019-03-09 05:26] MED LIST: ACETAMINOPHEN 325 MG TABLET PO PRN; CEFOXITIN SODIUM 2 GM in DEXTROSE 5%-WATER 100 ML IV PRN; IBUPROFEN 800 MG in NORMAL SALINE 250 ML IV PRN; LACTATED RINGERS 1000 ML IV PRN; LIDOCAINE 0.5% INJ-PF (5 MG/ML) 50 ML SDV SUBCUT PRN; PREGABALIN 50 MG CAPSULE PO PRN
[2019-03-09] MEDS ORDERED: PREGABALIN 50 MG CAPSULE ONE (06:05)
[2019-03-09] MEDS ORDERED: ACETAMINOPHEN 325 MG TABLET ONE (06:05)
[2019-03-09] MEDS ORDERED: FENTANYL CITRATE INJ/PF 250 MCG/5 ML AMPULE ONE (06:30)
[2019-03-09] MEDS ORDERED: PROPOFOL INJ 200 MG/20 ML VIAL IV ONE (06:31)
[2019-03-09] MEDS ORDERED: MIDAZOLAM 2 MG/2 ML INJ ONE (06:31)
[2019-03-09] MEDS ORDERED: BUPIVACAINE HCL 0.25 % INJ/PF (2.5 MG/1 ML) 30 ML VIAL ONE (07:18)
[2019-03-09] MEDS ORDERED: DIPHENHYDRAMINE HCL 50 MG/ML VIAL IV PRN (08:06)
[2019-03-09] MEDS ORDERED: MORPHINE SULFATE 10 MG/ML INJ IV PRN (08:06)
[2019-03-09] MEDS ORDERED: MEPERIDINE HCL/PF INJ 25 MG/1 ML DISP.SYRIN IV PRN (08:06)
[2019-03-09] MEDS ORDERED: OXYCODONE-ACETAMINOPHEN 5-325 MG TABLET PO PRN ×2 (08:06)
[2019-03-09] MEDS ORDERED: FENTANYL CITRATE INJ/PF 100 MCG/2 ML AMPUL IV PRN ×3 (08:06)
[2019-03-09] MEDS ORDERED: PROMETHAZINE HCL INJ 25 MG/1 ML VIAL IV PRN ×2 (08:06)
--- NOTE | 2019-03-09 08:29 | Discharge Summary ---
Discharge Summary (SDC) - Discharge Final Diagnosis: Symptomatic cholelithiasis Date of Surgery: 03/09/19 Discharge Date: 03/09/19 Condition: Stable Treatment or Instructions: Discharge home. Diet as tolerated. Activity: No lifting greater than 10 pounds x 2 weeks. Follow-up with me in 7 to 10 days. Walls 10/325 mg p.o. every 6 hours as needed for pain. Okay to shower in 48 hours. No tub baths or swimming pools x2 weeks. Referrals: JACQUELINE THAKUR PA-C [Primary Care Provider] - Discharge Diet: As Tolerated Respiratory Treatments at Home: Deep Breathing/Coughing, Incentive Spirometer Discharge Activity: Balance Activity w/Rest, No Lifting Over 10 Pounds Home Care Assistance: None Needed Report the Following to Your Physician Immediately: Shortness of Breath, Nausea, Vomiting, Increase in Pain, Yellow Skin, Fever over 101 Degrees, Unusual Bleeding, Redness
[2019-03-09] MEDS ORDERED: SUGAMMADEX SODIUM 200 MG/2 ML SDV IV ONE (08:33)
--- NOTE | 2019-03-09 08:34 | Operative Report ---
Nonrecallable Operative Report DATE OF SURGERY: 03/09/19 PREOPERATIVE DIAGNOSIS: Symptomatic cholelithiasis POSTOPERATIVE DIAGNOSIS: Same OPERATION: Laparoscopic cholecystectomy SURGEON: LOVE ESTEVEZ SCRAP SAWYER: LISSY CABRALES ANESTHESIA: GA TISSUE REMOVED OR ALTERED: Gallbladder COMPLICATIONS: None apparent ESTIMATED BLOOD LOSS: Minimal PROCEDURE: Drains/implants: None. Procedure in detail: After informed consent was obtained, the patient was brought to the operating room and laid in the supine position. The area of the abdomen was prepped and draped in a normal sterile fashion. An incision was created in the infraumbilical position with a 15 blade scalpel. Dissection was carried through the subcutaneous tissue using sharp and blunt dissection. The linea alba fascia was incised sharply, the abdomen was entered sharply. The balloon trocar was inserted. Pneumoperitoneum was at this time achieved. A subxiphoid 5 mm port was placed under direct laparoscopic visualization. 2 more 5 mm ports were placed in the right upper quadrant in similar fashion. Atraumatic graspers were placed through the 5 mm ports. The gallbladder was retracted cephalad and laterally. Dissection was begun in the triangle of Calot. The cystic duct and cystic artery were fully visualized and skeletonized, seeing the liver through the triangle. Once the critical view of safety was obtained, the cystic duct and cystic artery were clipped and cut with laparoscopic instruments. The gallbladder was then removed from the liver using Bovie electrocautery. The gallbladder was grasped with a large clamp and pulled out through the umbilicus. The camera was reinserted. The hilum was inspected. It was found to be free of any leakage of blood or bile. Once this was confirmed, the 5 mm trochars were removed under direct laparoscopic visualization. The infraumbilical trocar was removed, and pneumoperitoneum was relieved. The infraumbilical fascia was closed using 0 Vicryl suture in [id number] fashion. The overlying skin was closed using 4-0 Vicryl Rapide suture in sub cuticular fashion. A dressing was placed, and the procedure was concluded. All sponge, instrument, and needle counts were correct x2. Condition: Stable. Lissy Cabrales PA-C was scrubbed and present the entirety of the procedure. She assisted with all portions of the procedure including placement of the trochars, opening of the abdomen, manipulation of the gallbladder, removal of the gallbladder, closure of the fascia, and closure of the skin.
[2019-03-09] MEDS ORDERED: METOCLOPRAMIDE HCL INJ/PF 10 MG/2 ML SDV ONE (08:52)
[2019-03-09] MEDS ORDERED: PROMETHAZINE HCL INJ 25 MG/1 ML VIAL ONE (08:52)
[2019-03-09] MEDS: FENTANYL CITRATE INJ/PF 100 MCG/2 ML AMPUL ONE ×4 (09:01→09:20)
[2019-03-09] MEDS ORDERED: HYDROMORPHONE HCL INJ/PF 2 MG/ML AMPULE ONE (09:53)
[2019-03-09] MEDS ORDERED: OXYCODONE-ACETAMINOPHEN 5-325 MG TABLET PO ONE (10:00)
[2019-03-09] MEDS ORDERED: SIMETHICONE 80 MG TAB.CHEW ONE (10:24)
[2019-03-09] MEDS ORDERED: OXYCODONE-ACETAMINOPHEN 5-325 MG TABLET ONE (10:37)
[2019-03-09] MEDS ORDERED: NEOSTIGMINE METHYLSULFATE 10 MG/10 ML VIAL ONE (12:14)
[2019-03-09] MEDS ORDERED: GLYCOPYRROLATE 1 MG/5 ML SYRINGE ONE (12:14)
[2019-03-09] MEDS ORDERED: ROCURONIUM BROMIDE INJ 50 MG/5 ML VIAL IV ONE (12:14)
[2019-03-09] MEDS ORDERED: LIDOCAINE 2% INJ-PF (20 MG/ML) 2 ML AMPUL ONE (12:14)
[2019-03-09] MEDS ORDERED: DEXAMETHASONE SOD PHOSPHATE INJ 4 MG/1 ML VIAL ONE (12:14)
[2019-03-09] MEDS ORDERED: ONDANSETRON HCL INJ/PF 4 MG/2 ML SDV ONE (12:14)
[2019-03-09 13:25] VITALS: BP 124/63
== END 2019-03-09 12:15 | disposition home or self-care (01) ==
LOC: OROUT 05:26
PROVIDERS: ATTEND Surgery
DX: K80.10 Calculus of gallbladder with chronic cholecystitis without obstruction (principal); I10 Essential (primary) hypertension; E78.00 Pure hypercholesterolemia, unspecified; K55.9 Vascular disorder of intestine, unspecified; K21.9 Gastro-esophageal reflux disease without esophagitis; E89.0 Postprocedural hypothyroidism; I25.10 Atherosclerotic heart disease of native coronary artery without angina pectoris; Z79.899 Other long term (current) drug therapy; Z79.82 Long term (current) use of aspirin; Z87.11 Personal history of peptic ulcer disease
CPT/HCPCS: 36415; 85027; 80053; 88304 ×2; 00790; 47562; A9270 ×4; J2250; J3490 ×4; J1100; J0694; J3010 ×2; J2765; J2710; J1170; J2550; J2405; J7060; J7050; J2704; J1741; 790

== ENCOUNTER 2019-03-12 14:23 | Inpatient (IN) | payer MEDICARE, OTHER ==
[2019-03-12] MEDS ORDERED: GLUCAGON,HUMAN RECOMB 1 MG INJ SUBCUT PRN (14:54)
[2019-03-12] MEDS ORDERED: DEXTROSE 40% GEL 15 GM TUBE PO PRN ×2 (14:54)
[2019-03-12] MEDS ORDERED: DEXTROSE 50%-WATER 25 GM/50 ML DISP.SYRIN IV PRN ×2 (14:54)
[2019-03-12] MEDS ORDERED: HYDROMORPHONE HCL INJ/PF 2 MG/ML AMPULE IV PRN ×2 (14:55→17:44)
[2019-03-12] MEDS ORDERED: ONDANSETRON HCL INJ/PF 4 MG/2 ML SDV IV PRN (14:55)
[2019-03-12] MEDS ORDERED: NORMAL SALINE 1000 ML 2,000 ML IV ONE (15:30)
[2019-03-12 15:38] LABS: ABSOLUTE BASOPHILS # (AUTO) 0.1 10^3/uL (0.0-0.2); ABSOLUTE LYMPHOCYTES (AUTO) 0.6 10^3/uL (0.5-4.7); ABSOLUTE MONOCYTES (AUTO) 0.5 10^3/uL (0.1-1.4); ABSOLUTE NEUT (AUTO) 9.8 10^3/uL (1.7-8.2); BASOPHILS % (AUTO) 0.5 % (0-2); EOSINOPHILS % (AUTO) 0.3 % (0-6); HEMATOCRIT 36.6 % (36.0-47.0); HEMOGLOBIN 12.2 g/dL (12.0-15.5); LYMPHOCYTES % (AUTO) 5.4 % (13-45); MEAN CORPUSCULAR HEMOGLOBIN 30.5 pg (27.0-33.4); MEAN CORPUSCULAR HGB CONC 33.3 g/dL (32.0-36.0); MEAN CORPUSCULAR VOLUME 92 fl (80-97); MONOCYTES % (AUTO) 4.6 % (3-13); PLATELET COUNT 187 10^3/uL (150-450); RED BLOOD COUNT 4.01 10^6/uL (3.72-5.28); RED CELL DISTRIBUTION WIDTH 13.3 % (11.5-14.0); SEGMENTED NEUTROPHILS % (AUTO) 89.2 % (42-78); TOTAL CELLS COUNTED % (AUTO) 100 %
--- NOTE | 2019-03-12 15:59 | RADIOLOGY REPORT (SQ) ---
EXAM DESCRIPTION: ABDOMEN 2 VIEWS COMPLETED DATE/TIME: 03/12/2019 3:51 pm REASON FOR STUDY: new onset ABD pain COMPARISON: None. NUMBER OF VIEWS: Two views. TECHNIQUE: Supine and erect/decubitus radiographic images of the abdomen acquired. LIMITATIONS: None. FINDINGS: FREE AIR: None. No abnormal gas collections. LUNG BASES: Clear. BOWEL GAS PATTERN: Nonobstructive pattern. Moderate stool throughout the colon. No dilated loops or air fluid levels. CALCIFICATIONS: No suspicious calcifications. SOFT TISSUES: No gross mass or suggestion of organomegaly. HARDWARE: Surgical clips. BONES: No acute fracture. No worrisome bone lesions. OTHER: No other significant finding. IMPRESSION: NO RADIOGRAPHIC EVIDENCE FOR ACUTE ABDOMINAL DISEASE. TECHNICAL DOCUMENTATION: JOB ID: [id number] [employer]- All Rights Reserved Reading location - IP/workstation name: [email or web address]
--- NOTE | 2019-03-12 16:28 | RADIOLOGY REPORT (SQ) ---
EXAM DESCRIPTION: U/S ABDOMEN COMPLETE W/O DOP COMPLETED DATE/TIME: 03/12/2019 4:16 pm REASON FOR STUDY: S/P ej,eval for fluid collections/duct dilation COMPARISON: None TECHNIQUE: Dynamic and static grayscale images acquired of the abdomen and recorded on PACS. Additio nal selected color Doppler and spectral images recorded. LIMITATIONS: Study limited due to acoustical interference from fat or from air in the bowel. FINDINGS: PANCREAS: Poorly seen secondary to acoustical interference from fat or from air in the bow el. No visualized masses. Duct normal caliber as seen. LIVER: No masses. No dilated ducts. LIVER VASCULATURE: Normal directional flow of the main portal vein and hepatic veins. GALLBLADDER: Surgically absent. No abnormal fluid collection in the gallbladder fossa. ULTRASOUND-DETECTED IBARRA'S SIGN: Negative. INTRAHEPATIC DUCTS AND COMMON DUCT:CBD and intrahepatic ducts normal caliber. No filling defects. INFERIOR VENA CAVA: Normal flow. AORTA: No aneurysm. RIGHT KIDNEY: Normal size. Normal echogenicity. Small benign-appearing echogenic cortical lesion me asuring 6 x 8 mm. No hydronephrosis. No calcifications. LEFT KIDNEY: Normal size. Normal echogenicity. No solid or suspicious masses. No hydronephrosis. No calcifications. SPLEEN:Normal size. No solid masses. PERITONEAL AND PLEURAL SPACES: Possible fluid collection in the left upper quadrant adjacent to the s pleen. OTHER: No other significant finding. IMPRESSION: 1. POSTCHOLECYSTECTOMY. NO ABNORMAL FLUID COLLECTION IN THE GALLBLADDER FOSSA. NO DUCTAL DILATION. 2. POSSIBLE FLUID COLLECTION IN THE LEFT UPPER QUADRANT ADJACENT TO THE SPLEEN. THIS IS DIFFICULT TO VISUALIZE DUE TO THE LOCATION AND OVERLYING BOWEL GAS. 3. NO OTHER SIGNIFICANT FINDING IN THE VISUALIZED ABDOMEN. TECHNICAL DOCUMENTATION: JOB ID: [id number] [employer]- All Rights Reserved Reading location - IP/workstation name: [email or web address]
--- NOTE | 2019-03-12 16:44 | PDOC H&P ---
History of Present Illness Admission Date/PCP: 03/12/19 14:23 Patient complains of: Sharp, stabbing epigastric abdominal pain. History of Present Illness: BORA GUZMAN is a 68 year old female approximately 3 days postop from a laparoscopic cholecystectomy. The patient was doing well at home until this morning. The patient had sharp and stabbing epigastric abdominal pain that bores through to her back. Her pain is rated as 10 out of 10. She has never f elt any pain like this previously. Nothing makes it better or worse. She denies chest pain, shortness of breath, fevers, chills, nausea, vomiting. Her main complaint is the unrelenting abdominal pain. Past Medical History Cardiac Medical History: Reports: Coronary Artery Disease - CABG 2009, Hyperlipidema, Hypertension Denies: Myocardial Infarction Pulmonary Medical History: Denies: Asthma, Bronchitis, Chronic Obstructive Pulmonary Disease (COPD), Pneumonia Neurological Medical History: Denies: Seizures GI Medical History: Reports: Gastroesophageal Reflux Disease Musculoskeltal Medical History: Reports: Arthritis - GENERALIZED Hematology: Denies: Anemia Past Surgical History Past Surgical History: Reports: Coronary Artery Bypass Graft, Tubal Ligation Social History Smoking Status: Never Smoker Frequency of Alcohol Use: None Hx Recreational Drug Use: No Drugs: None Hx Prescription Drug Abuse: No Family History Family History: Reviewed & Not Pertinent Parental Family History Reviewed: Yes Children Family History Reviewed: Yes Sibling(s) Family History Reviewed.: Yes Medication/Allergy Home Medications: Aspirin [Ecotrin 81 mg EC Tablet] 81 mg PO DAILY 03/12/19 Calcium Carbonate/Vitamin D3 [Calcium 500-Vit D3 200 Caplet] 1 tab PO DAILY 03/12/19 Ezetimibe [Zetia 10 mg Tablet] 10 mg PO DAILY 03/12/19 Gabapentin [Neurontin] 600 mg PO Q8 03/12/19 Hydrocodone/Acetaminophen [Klemme 7.5-325 mg Tablet] 1 tab PO Q6HP PRN 03/12/19 Metoprolol Tartrate [Lopressor 25 mg Tablet] 25 mg PO Q12 03/12/19 Multivitamin [Tab-A-Sandie (Multiple Vitamin) Tablet] 1 tab PO DAILY 03/12/19 Nitroglycerin [Nitromist] 1 spray SL Q5MP PRN 03/12/19 Omeprazole 20 mg PO DAILY 03/12/19 Pravastatin Sodium [Pravachol] 80 mg PO DAILY 03/12/19 Allergies/Adverse Reactions: No Known Allergies Allergy (Verified 08/10/18 16:54) Review of Systems Constitutional: ABSENT: anorexia, chills, fatigue, fever(s), weakness Eyes: ABSENT: visual disturbances Ears: ABSENT: hearing changes Nose, Mouth, and Throat: ABSENT: sore throat Cardiovascular: ABSENT: chest pain Respiratory: ABSENT: cough Gastrointestinal: PRESENT: abdominal pain. ABSENT: hematochezia, melena, nausea, vomiting Musculoskeletal: PRESENT: back pain Integumentary: PRESENT: diaphoresis. ABSENT: pruritus, rash Psychiatric: ABSENT: anxiety Endocrine: ABSENT: cold intolerance, heat intolerance Hematologic/Lymphatic: ABSENT: easy bleeding, easy bruising Physical Exam Vital Signs: Temp Pulse Resp BP Pulse Ox 97.7 F 50 L 46 H 163/54 H 99 03/12/19 14:59 03/12/19 14:59 03/12/19 14:59 03/12/19 14:59 03/12/19 14:59 Intake & Output 03/11/19 03/12/19 03/13/19 06:59 06:59 06:59 Weight 64.8 kg General appearance: PRESENT: cooperative, mild distress - Abdominal discomfort Head exam: PRESENT: atraumatic, normocephalic Eye exam: PRESENT: EOMI, PERRLA. ABSENT: scleral icterus Mouth exam: PRESENT: neck supple Respiratory exam: PRESENT: clear to auscultation kacie, tachypnea - Mild. ABSENT: chest wall tenderness, wheezes Cardiovascular exam: PRESENT: RRR Pulses: PRESENT: normal radial pulses Vascular exam: PRESENT: normal capillary refill GI/Abdominal exam: PRESENT: soft, tenderness - Epigastric. ABSENT: distended, guarding Extremities exam: ABSENT: clubbing Musculoskeletal exam: ABSENT: deformity Neurological exam: PRESENT: alert, awake, oriented to person, oriented to place, oriented to time, oriented to situation, CN II-XII grossly intact Psychiatric exam: PRESENT: agitated, anxious. ABSENT: depressed Focused psych exam: ABSENT: delusional Skin exam: ABSENT: cyanosis, erythema, jaundice Results Laboratory Results: 03/12/19 15:09 03/12/19 15:09 03/12/19 03/12/19 03/12/19 15:09 15:09 15:09 WBC 11.0 H RBC 4.01 Hgb 12.2 Hct 36.6 MCV 92 MCH 30.5 MCHC 33.3 RDW 13.3 Plt Count 187 Seg Neutrophils % 89.2 H Lymphocytes % 5.4 L Monocytes % 4.6 Eosinophils % 0.3 Basophils % 0.5 Absolute Neutrophils 9.8 H Absolute Lymphocytes 0.6 Absolute Monocytes 0.5 Absolute Eosinophils 0.0 Absolute Basophils 0.1 Sodium Cancelled Potassium Cancelled Chloride Cancelled Carbon Dioxide Cancelled Anion Gap Cancelled BUN Cancelled Creatinine Cancelled Est GFR ( Amer) Cancelled Est GFR (Non-Af Amer) Cancelled Glucose Cancelled Lactic Acid 1.8 Calcium Cancelled Total Bilirubin Cancelled AST Cancelled ALT Cancelled Alkaline Phosphatase Cancelled Total Protein Cancelled Albumin Cancelled Amylase Cancelled Lipase Cancelled 03/12/19 03/12/19 15:09 15:09 Creatine Kinase Cancelled CK-MB (CK-2) Cancelled Troponin I Cancelled Impressions: Abdomen Ultrasound 03/12/19 00:00 IMPRESSION: 1. POSTCHOLECYSTECTOMY. NO ABNORMAL FLUID COLLECTION IN THE GALLBLADDER FOSSA. NO DUCTAL DILATION. 2. POSSIBLE FLUID COLLECTION IN THE LEFT UPPER QUADRANT ADJACENT TO THE SPLEEN. THIS IS DIFFICULT TO VISUALIZE DUE TO THE LOCATION AND OVERLYING BOWEL GAS. 3. NO OTHER SIGNIFICANT FINDING IN THE VISUALIZED ABDOMEN. Abdomen X-Ray 03/12/19 00:00 IMPRESSION: NO RADIOGRAPHIC EVIDENCE FOR ACUTE ABDOMINAL DISEASE. Assessment & Plan - Diagnosis (1) Epigastric abdominal pain Is this a current diagnosis for this admission?: Yes (2) Hx laparoscopic cholecystectomy Is this a current diagnosis for this admission?: Yes - Plan Summary Plan Summary: This is a 68-year-old female postop day 3 from laparoscopic cholecystectomy. She was doing well until this morning at 11 AM. She began having sharp and stabbing epigastric abdominal pain that bores through to her back. The patient appears in a large amount of discomfort. She is admitted for pain control, intravenous fluid administration, and work-up. I will start the work-up with a laboratory evaluation (CBC, CMP, lactic acid, amylase, and lipase). I will also check an EKG and cardiac enzymes. I will also order a right upper quadrant ultrasound to rule out any fluid collection consistent with a biloma or intrahepatic ductal dilatation. X-rays to rule out perforation or obstruction. I will order intravenous fluids and pain/nausea medications. Further work-up and/or intervention to be determined after her initial testing is complete.
[2019-03-12 17:17] LABS: ALANINE AMINOTRANSFERASE 258 U/L (9-52); ALBUMIN 4.2 g/dL (3.5-5.0); ALKALINE PHOSPHATASE 225 U/L (38-126); AMYLASE 68 U/L (30-110); ANION GAP 9 (5-19); ASPARTATE AMINO TRANSFERASE 352 U/L (14-36); BILIRUBIN,DIRECT 0.4 mg/dL (0.0-0.4); BILIRUBIN,TOTAL 0.9 mg/dL (0.2-1.3); BLOOD UREA NITROGEN 11 mg/dL (7-20); CALCIUM 9.5 mg/dL (8.4-10.2); CARBON DIOXIDE 32 mmol/L (22-30); CHLORIDE 102 mmol/L (98-107); CREATINE KINASE 41 U/L (30-135); GLUCOSE 113 mg/dL (75-110); SODIUM 143.1 mmol/L (137-145); TOTAL PROTEIN 7.2 g/dL (6.3-8.2)
[2019-03-12 17:28] LABS: CREATINE KINASE MB 0.34 ng/mL (<4.55)
[2019-03-12 17:32] LABS: TROPONIN I < 0.012 ng/mL
[2019-03-12] MEDS ORDERED: METOCLOPRAMIDE HCL ORAL SOLN 10 MG/10 ML UDCUP PO ONE (17:44)
[2019-03-12] MEDS ORDERED: MAG HYDROX/AL HYDROX/SIMETH SUSP 30 ML UDCUP PO ONE (17:44)
[2019-03-12] MEDS ORDERED: LIDOCAINE 2% VISCOUS SOLN 20 ML UDCUP PO ONE (17:44)
[2019-03-12] MEDS: DOCUSATE SODIUM 100 MG CAPSULE PO SCH (18:14)
[2019-03-12] MEDS: DEXTROSE 5%-LACTATED RINGERS 1,000 ML IV PRN (18:40)
--- NOTE | 2019-03-12 20:15 | EKG REPORT ---
SEVERITY:- ABNORMAL ECG - SINUS RHYTHM FIRST DEGREE AV BLOCK LEFT VENTRICULAR HYPERTROPHY : Confirmed by: Grupo Frank MD 12-Mar-2019 20:14:44
[2019-03-12] MEDS: METOPROLOL TARTRATE 25 MG TABLET PO SCH (21:38)
[2019-03-12] MEDS: PANTOPRAZOLE SODIUM 40 MG VIAL IV SCH (21:38)
[2019-03-12] MEDS: SUCRALFATE 1 GM TABLET PO SCH (21:38)
[2019-03-13] MEDS: DEXTROSE 5%-LACTATED RINGERS 1,000 ML IV PRN (03:17)
[2019-03-13 05:34] LABS: ABSOLUTE EOSINOPHILS # (AUTO) 0.1 10^3/uL (0.0-0.6); ABSOLUTE LYMPHOCYTES (AUTO) 0.8 10^3/uL (0.5-4.7); ABSOLUTE MONOCYTES (AUTO) 0.6 10^3/uL (0.1-1.4); ABSOLUTE NEUT (AUTO) 6.2 10^3/uL (1.7-8.2); BASOPHILS % (AUTO) 0.4 % (0-2); EOSINOPHILS % (AUTO) 0.7 % (0-6); HEMATOCRIT 35.2 % (36.0-47.0); HEMOGLOBIN 11.7 g/dL (12.0-15.5); LYMPHOCYTES % (AUTO) 10.3 % (13-45); MEAN CORPUSCULAR HEMOGLOBIN 30.5 pg (27.0-33.4); MEAN CORPUSCULAR HGB CONC 33.3 g/dL (32.0-36.0); MEAN CORPUSCULAR VOLUME 92 fl (80-97); MONOCYTES % (AUTO) 7.4 % (3-13); PLATELET COUNT 167 10^3/uL (150-450); RED BLOOD COUNT 3.83 10^6/uL (3.72-5.28); RED CELL DISTRIBUTION WIDTH 13.3 % (11.5-14.0); SEGMENTED NEUTROPHILS % (AUTO) 81.2 % (42-78); TOTAL CELLS COUNTED % (AUTO) 100 %; WHITE BLOOD COUNT 7.6 10^3/uL (4.0-10.5)
[2019-03-13 05:52] LABS: ALANINE AMINOTRANSFERASE 267 U/L (9-52); ALBUMIN 3.4 g/dL (3.5-5.0); ALKALINE PHOSPHATASE 193 U/L (38-126); ANION GAP 8 (5-19); ASPARTATE AMINO TRANSFERASE 235 U/L (14-36); BILIRUBIN,DIRECT 0.2 mg/dL (0.0-0.4); BILIRUBIN,TOTAL 0.6 mg/dL (0.2-1.3); BLOOD UREA NITROGEN 7 mg/dL (7-20); CALCIUM 9.3 mg/dL (8.4-10.2); CARBON DIOXIDE 28 mmol/L (22-30); CHLORIDE 106 mmol/L (98-107); GLUCOSE 110 mg/dL (75-110); POTASSIUM 3.9 mmol/L (3.6-5.0); SODIUM 141.7 mmol/L (137-145)
[2019-03-13] MEDS ORDERED: HYDROMORPHONE HCL INJ/PF 2 MG/ML AMPULE IV PRN (08:13)
[2019-03-13] MEDS ORDERED: HYDROCODONE/ACETAMINOPHEN 10-325 MG TABLET PO PRN (08:13)
--- NOTE | 2019-03-13 08:19 | PDOC PROGRESS REPORT ---
Subjective Progress Note for:: 03/13/19 Subjective:: This is a 68-year-old female approximately 4 days status post laparoscopic cholecystectomy. She was admitted to the hospital for severe, sharp, stabbing epigastric abdominal pain. Today, her pain is much improved. Last night she drank a GI cocktail with very good results. This morning she denies chest pain, shortness of breath, dizziness, orthostasis, blurry vision, fevers, chills, nausea, vomiting, and abdominal pain. Reason For Visit: ACUTE ABD PAIN POST GB SURGERY Physical Exam Vital Signs: Temp Pulse Resp BP Pulse Ox 98.4 F 65 16 146/62 H 96 03/13/19 07:41 03/13/19 07:41 03/13/19 07:41 03/13/19 07:41 03/13/19 04:00 Intake & Output 03/12/19 03/13/19 03/14/19 06:59 06:59 06:59 Intake Total 1999 Balance 1999 Weight 72.6 kg General appearance: PRESENT: no acute distress, cooperative Head exam: PRESENT: atraumatic, normocephalic Eye exam: PRESENT: EOMI, PERRLA. ABSENT: scleral icterus Mouth exam: PRESENT: moist, neck supple Teeth exam: ABSENT: poor dentation Neck exam: ABSENT: meningismus, tenderness, thyromegaly, tracheal deviation Respiratory exam: PRESENT: clear to auscultation kacie. ABSENT: chest wall tenderness Cardiovascular exam: PRESENT: RRR Pulses: PRESENT: normal radial pulses Vascular exam: PRESENT: normal capillary refill. ABSENT: pallor GI/Abdominal exam: PRESENT: soft. ABSENT: distended, firm, guarding, tenderness Rectal exam: PRESENT: deferred Extremities exam: ABSENT: clubbing Musculoskeletal exam: ABSENT: deformity Neurological exam: PRESENT: alert, awake, oriented to person, oriented to place, oriented to time, oriented to situation, CN II-XII grossly intact. ABSENT: motor sensory deficit Psychiatric exam: ABSENT: agitated, anxious, depressed Focused psych exam: ABSENT: delusional Skin exam: ABSENT: cyanosis, erythema, jaundice Results Laboratory Results: 03/13/19 04:44 03/13/19 04:44 03/12/19 03/12/19 03/12/19 15:09 15:09 15:09 WBC 11.0 H RBC 4.01 Hgb 12.2 Hct 36.6 MCV 92 MCH 30.5 MCHC 33.3 RDW 13.3 Plt Count 187 Seg Neutrophils % 89.2 H Lymphocytes % 5.4 L Monocytes % 4.6 Eosinophils % 0.3 Basophils % 0.5 Absolute Neutrophils 9.8 H Absolute Lymphocytes 0.6 Absolute Monocytes 0.5 Absolute Eosinophils 0.0 Absolute Basophils 0.1 Sodium Cancelled Potassium Cancelled Chloride Cancelled Carbon Dioxide Cancelled Anion Gap Cancelled BUN Cancelled Creatinine Cancelled Est GFR ( Amer) Cancelled Est GFR (Non-Af Amer) Cancelled Glucose Cancelled Lactic Acid 1.8 Calcium Cancelled Total Bilirubin Cancelled AST Cancelled ALT Cancelled Alkaline Phosphatase Cancelled Total Protein Cancelled Albumin Cancelled Amylase Cancelled Lipase Cancelled 03/12/19 03/13/19 03/13/19 16:48 04:44 04:44 WBC 7.6 RBC 3.83 Hgb 11.7 L Hct 35.2 L MCV 92 MCH 30.5 MCHC 33.3 RDW 13.3 Plt Count 167 Seg Neutrophils % 81.2 H Lymphocytes % 10.3 L Monocytes % 7.4 Eosinophils % 0.7 Basophils % 0.4 Absolute Neutrophils 6.2 Absolute Lymphocytes 0.8 Absolute Monocytes 0.6 Absolute Eosinophils 0.1 Absolute Basophils 0.0 Sodium 143.1 141.7 Potassium 4.0 3.9 Chloride 102 106 Carbon Dioxide 32 H 28 Anion Gap 9 8 BUN 11 7 Creatinine 0.87 0.73 Est GFR ( Amer) > 60 > 60 Est GFR (Non-Af Amer) > 60 > 60 Glucose 113 H 110 Lactic Acid Calcium 9.5 9.3 Total Bilirubin 0.9 0.6 AST 352 H 235 H ALT 258 H 267 H Alkaline Phosphatase 225 H 193 H Total Protein 7.2 6.0 L Albumin 4.2 3.4 L Amylase 68 Lipase 31.0 03/12/19 03/12/19 03/12/19 15:09 15:09 16:48 Creatine Kinase Cancelled 41 CK-MB (CK-2) Cancelled Troponin I Cancelled 03/12/19 16:48 Creatine Kinase CK-MB (CK-2) 0.34 Troponin I < 0.012 Impressions: Abdomen Ultrasound 03/12/19 00:00 IMPRESSION: 1. POSTCHOLECYSTECTOMY. NO ABNORMAL FLUID COLLECTION IN THE GALLBLADDER FOSSA. NO DUCTAL DILATION. 2. POSSIBLE FLUID COLLECTION IN THE LEFT UPPER QUADRANT ADJACENT TO THE SPLEEN. THIS IS DIFFICULT TO VISUALIZE DUE TO THE LOCATION AND OVERLYING BOWEL GAS. 3. NO OTHER SIGNIFICANT FINDING IN THE VISUALIZED ABDOMEN. Abdomen X-Ray 03/12/19 00:00 IMPRESSION: NO RADIOGRAPHIC EVIDENCE FOR ACUTE ABDOMINAL DISEASE. Assessment & Plan - Diagnosis (1) Epigastric abdominal pain Is this a current diagnosis for this admission?: Yes (2) Hx laparoscopic cholecystectomy Is this a current diagnosis for this admission?: Yes - Plan Summary Plan Summary: This is a 68-year-old female with epigastric abdominal pain after laparoscopic cholecystectomy. Her right upper quadrant ultrasound is essentially normal. Her bilirubin is normal. Her amylase, lipase, white blood cell count, lactic acid, and cardiac enzymes are normal. Her EKG is unchanged from preop. The patient received very good relief with a GI cocktail. The patient is currently receiving IV Protonix and oral Carafate. Her symptoms appear to be improving. I believe the patient is experiencing gastritis and/or recurrent peptic ulcer disease. I will start her on a diet today. I will see how she tolerates her diet. Possible discharge today or tomorrow if the patient continues to progress well. Continue Colace. Out of bed/ambulate in halls. Aggressive pulmonary toilet. Will reassess later today.
[2019-03-13] MEDS: SUCRALFATE 1 GM TABLET PO SCH ×3 (08:48→15:51)
[2019-03-13] MEDS ORDERED: MULTIVITAMIN TABLET PO SCH (10:00)
[2019-03-13] MEDS ORDERED: (PENDING PHARMACY ID) (Calcium Carbonate/Vitamin D3 [Calcium 500-Vit D3 200 Caplet] 1 TAB) PO SCH (10:00)
[2019-03-13] MEDS ORDERED: EZETIMIBE 10 MG TABLET PO SCH (10:00)
[2019-03-13] MEDS ORDERED: ASPIRIN 81 MG TABLET, ENT COATED PO SCH (10:00)
[2019-03-13] MEDS ORDERED: CALCIUM CARBONATE 250 MG/VITAMIN D3 125 UNIT TABLET PO SCH (10:00)
[2019-03-13] MEDS: METOPROLOL TARTRATE 25 MG TABLET PO SCH (10:47)
[2019-03-13] MEDS: DOCUSATE SODIUM 100 MG CAPSULE PO SCH ×2 (10:47→17:14)
[2019-03-13] MEDS: PANTOPRAZOLE SODIUM 40 MG VIAL IV SCH (10:47)
[2019-03-13] MEDS ORDERED: GABAPENTIN 300 MG CAPSULE PO SCH (14:00)
--- NOTE | 2019-03-13 17:27 | PDOC DISCHARGE SUMMARY ---
General - Admit/Disc Date/PCP Admission Date/Primary Care Provider: 03/12/19 14:23 Discharge Date: 03/13/19 - Discharge Diagnosis (1) Epigastric abdominal pain Is this a current diagnosis for this admission?: Yes (2) Hx laparoscopic cholecystectomy Is this a current diagnosis for this admission?: Yes - Additional Information Home Medications: Aspirin [Ecotrin 81 mg EC Tablet] 81 mg PO DAILY 03/12/19 Calcium Carbonate/Vitamin D3 [Calcium 500-Vit D3 200 Caplet] 1 tab PO DAILY 03/12/19 Ezetimibe [Zetia 10 mg Tablet] 10 mg PO DAILY 03/12/19 Gabapentin [Neurontin] 600 mg PO Q8 03/12/19 Hydrocodone/Acetaminophen [[place] 7.5-325 mg Tablet] 1 tab PO Q6HP PRN 03/12/19 Metoprolol Tartrate [Lopressor 25 mg Tablet] 25 mg PO Q12 03/12/19 Multivitamin [Tab-A-Sandie (Multiple Vitamin) Tablet] 1 tab PO DAILY 03/12/19 Nitroglycerin [Nitromist] 1 spray SL Q5MP PRN 03/12/19 Omeprazole 20 mg PO DAILY 03/12/19 Pravastatin Sodium [Pravachol] 80 mg PO DAILY 03/12/19 History of Present Illness History of Present Illness: BORA GUZMAN is a 68 year old female approximately 3 days postop from a laparoscopic cholecystectomy. The patient was doing well at home until Tuesday morning. The patient had sharp and stabbing epigastric abdominal pain that bores through to her back. Her pain is rated as 10 out of 10. She has never felt any pain like this previously. Nothing makes it better or worse. She denies chest pain, shortness of breath, fevers, chills, nausea, vomiting. Her main complaint is the unrelenting abdominal pain. Hospital Course Hospital Course: The patient was admitted to the hospital to rule out postoperative pancreatitis. The patient's initial lab work was unremarkable. Her bilirubin was normal, her amylase and lipase were normal. The patient was given a GI cocktail and began to see some improvement. The patient was started on Carafate 1 g p.o. 4 times per day. On hospital day #2, the patient's symptoms were essentially resolved. She was started on a diet. She tolerated this well. Her lab work remained normal. By the end of hospital day 2 the patient was ambulating, tolerating a diet, her pain was resolved with the addition of Carafate, and it was felt that she had reached maximal hospital benefit and was fit for discharge. Physical Exam Vital Signs: Temp Pulse Resp BP Pulse Ox 98.2 F 68 16 143/60 H 98 03/13/19 14:10 03/13/19 14:10 03/13/19 14:10 03/13/19 14:10 03/13/19 14:10 Intake & Output 03/12/19 03/13/19 03/14/19 06:59 06:59 06:59 Intake Total 2000 600 Balance 2000 600 Weight 72.6 kg Results Laboratory Results: 03/13/19 04:44 03/13/19 04:44 03/12/19 03/13/19 03/13/19 16:48 04:44 04:44 WBC 7.6 RBC 3.83 Hgb 11.7 L Hct 35.2 L MCV 92 MCH 30.5 MCHC 33.3 RDW 13.3 Plt Count 167 Seg Neutrophils % 81.2 H Lymphocytes % 10.3 L Monocytes % 7.4 Eosinophils % 0.7 Basophils % 0.4 Absolute Neutrophils 6.2 Absolute Lymphocytes 0.8 Absolute Monocytes 0.6 Absolute Eosinophils 0.1 Absolute Basophils 0.0 Sodium 143.1 141.7 Potassium 4.0 3.9 Chloride 102 106 Carbon Dioxide 32 H 28 Anion Gap 9 8 BUN 11 7 Creatinine 0.87 0.73 Est GFR ( Amer) > 60 > 60 Est GFR (Non-Af Amer) > 60 > 60 Glucose 113 H 110 Calcium 9.5 9.3 Total Bilirubin 0.9 0.6 AST 352 H 235 H ALT 258 H 267 H Alkaline Phosphatase 225 H 193 H Total Protein 7.2 6.0 L Albumin 4.2 3.4 L Amylase 68 Lipase 31.0 03/12/19 03/12/19 03/12/19 15:09 15:09 16:48 Creatine Kinase Cancelled 41 CK-MB (CK-2) Cancelled Troponin I Cancelled 03/12/19 16:48 Creatine Kinase CK-MB (CK-2) 0.34 Troponin I < 0.012 Impressions: Abdomen Ultrasound 03/12/19 00:00 IMPRESSION: 1. POSTCHOLECYSTECTOMY. NO ABNORMAL FLUID COLLECTION IN THE GALLBLADDER FOSSA. NO DUCTAL DILATION. 2. POSSIBLE FLUID COLLECTION IN THE LEFT UPPER QUADRANT ADJACENT TO THE SPLEEN. THIS IS DIFFICULT TO VISUALIZE DUE TO THE LOCATION AND OVERLYING BOWEL GAS. 3. NO OTHER SIGNIFICANT FINDING IN THE VISUALIZED ABDOMEN. Abdomen X-Ray 03/12/19 00:00 IMPRESSION: NO RADIOGRAPHIC EVIDENCE FOR ACUTE ABDOMINAL DISEASE. Qualifiers - * PATIENT BEING DISCHARGED WITH ANY OF THE FOLLOWING DIAGNOSIS: No Acute Heart Failure - Is this a Heart Failure Patient?: No LVEF < 40%?: No- if no continue to question #3 Plan Discharge Plan: Discharge home. Diet as tolerated. Activity: No lifting greater than 10 pounds x 2 weeks after surgery. Follow-up with me next week in the office. Continue with Carafate 1 g p.o. 4 times per day. Continue home omeprazole dose. Time Spent: Less than 30 Minutes
[2019-03-13 18:05] VITALS: BP 143/58
[2019-03-13] MEDS ORDERED: ATORVASTATIN CALCIUM 20 MG TABLET PO SCH (22:00)
== END 2019-03-13 18:29 | disposition home or self-care (01) | DRG 948 ==
LOC: 3W 14:23
PROVIDERS: ADMIT Surgery; ATTEND Surgery
DX: G89.18 Other acute postprocedural pain (principal); R10.13 Epigastric pain; I25.10 Atherosclerotic heart disease of native coronary artery without angina pectoris; E78.5 Hyperlipidemia, unspecified; I10 Essential (primary) hypertension; K21.9 Gastro-esophageal reflux disease without esophagitis; Z79.82 Long term (current) use of aspirin; Z79.899 Other long term (current) drug therapy; Z95.1 Presence of aortocoronary bypass graft; Z90.49 Acquired absence of other specified parts of digestive tract; Z87.11 Personal history of peptic ulcer disease; Z86.010 Personal history of colon polyps
CPT/HCPCS: 36415; 74019; 76700; 80053; 82150; 82550; 82553; 82962; 83605; 83690; 84484; 85025; 93005; 93010; J1170; J3490; J7030; J7121; S0164

== ENCOUNTER 2019-04-10 13:26 | Day surgery (SDC) | payer MEDICARE, OTHER ==
[~2019-04-10 13:26] MED LIST changes: -ACETAMINOPHEN 325 MG TABLET PO PRN; -CEFOXITIN SODIUM 2 GM in DEXTROSE 5%-WATER 100 ML IV PRN; -IBUPROFEN 800 MG in NORMAL SALINE 250 ML IV PRN; -LACTATED RINGERS 1000 ML IV PRN; -LIDOCAINE 0.5% INJ-PF (5 MG/ML) 50 ML SDV SUBCUT PRN; -PREGABALIN 50 MG CAPSULE PO PRN; +SUCCINYLCHOLINE CHLORIDE INJ 200 MG/10 ML VIAL ONE
[2019-04-10] MEDS ORDERED: MIDAZOLAM 2 MG/2 ML INJ ONE (15:27)
[2019-04-10] MEDS ORDERED: PROPOFOL INJ 200 MG/20 ML VIAL IV ONE (15:27)
[2019-04-10] MEDS ORDERED: FENTANYL CITRATE INJ/PF 100 MCG/2 ML AMPUL ONE (15:27)
[2019-04-10] MEDS ORDERED: LIDOCAINE 1% INJ-PF (10 MG/ML) 30 ML SDV ONE (15:28)
[2019-04-10] MEDS ORDERED: ONDANSETRON HCL INJ/PF 4 MG/2 ML SDV ONE (15:28)
[2019-04-10] MEDS ORDERED: GLUCAGON,HUMAN RECOMB 1 MG INJ ONE (16:09)
[2019-04-10] MEDS ORDERED: ESMOLOL HCL INJ/PF 100 MG/10 ML SDV IV ONE (16:29)
[2019-04-10] MEDS ORDERED: FENTANYL CITRATE INJ/PF 100 MCG/2 ML AMPUL IV PRN ×3 (16:49)
[2019-04-10] MEDS ORDERED: DIPHENHYDRAMINE HCL 50 MG/ML VIAL IV PRN (16:49)
[2019-04-10] MEDS ORDERED: MEPERIDINE HCL/PF INJ 25 MG/1 ML DISP.SYRIN IV PRN (16:49)
[2019-04-10] MEDS ORDERED: ONDANSETRON HCL INJ/PF 4 MG/2 ML SDV IV PRN (16:49)
--- NOTE | 2019-04-10 18:00 | Operative Report ---
Operative Report DATE OF SURGERY: 04/10/19 Operative Report: Pre-op diagnosis: Post cholecystectomy recurrent abdominal pain with transient elevation in LFTs Post-op diagnosis: 1. Common bile duct sludge 2. Dilated pancreatic duct Surgery: ERCP with sphincterotomy and balloon sludge extraction Medications: As per anesthesia Tissue removed: None Procedure: After informed consent obtained from patient, the throat was sprayed with Hurricane and conscious sedation was achieved. The ERCP endoscope was then inserted into the esophagus blindly and advanced into the stomach. The duodenum was entered and the ampulla was identified. Using the triple-lumen sphincterotomy catheter the common bile duct was freely cannulated. A cholangiogram was obtained which showed possible filling defect in the distal common bile duct. A good sized sphincterotomy was then performed using the endocut mode. The catheter was removed over the guidewire before a 9-12 mm balloon catheter was inserted. The balloon was inflated to 12 mm in the proximal common bile duct and pulled down the duct. Some sludge was extracted. The duct was swept one more time. A balloon occlusion cholangiogram was normal. Patient tolerated procedure well. Findings Common bile duct: Appeared to be slightly dilated with angulation at the distal third of the duct. Small amount of sludge was extracted Intrahepatic ducts: Normal Pancreatic duct: Slightly dilated also with angulation at the proximal end. Plan: We will schedule her for endoscopic ultrasound to rule out pancreatic head mass OPERATION: .
[2019-04-10] MEDS ORDERED: ACETAMINOPHEN 325 MG TABLET ONE (18:21)
[2019-04-10 19:40] VITALS: BP 156/70
--- NOTE | 2019-04-11 08:31 | RADIOLOGY REPORT (SQ) ---
EXAM DESCRIPTION: NO CHG FLUORO; ENDO CATH/BILIARY DUCT COMPLETED DATE/TIME: 04/10/2019 5:24 pm REASON FOR STUDY: ERCP R94.5 ABNORMAL RESULTS OF LIVER FUNCTION STUDIES K80.20 CALCULUS OF GALLBLA DDER W/O CHOLECYSTITIS W/O OBSTRUC COMPARISON: None. FLUOROSCOPY TIME: 4.3 minutes 12 images saved to PACS. TECHNIQUE: Intra-operative images acquired during surgical procedure to evaluate progress. NUMBER OF IMAGES: 12 LIMITATIONS: None. FINDINGS: Intraoperative fluoroscopic images obtained demonstrate evidence of ERCP. There is opacif ication of the biliary tree with evidence of balloon sweep. Please see operative report for detailed description of the procedure. IMPRESSION: IMAGE(S) OBTAINED DURING PROCEDURE. COMMENT: Quality ID 145: Final reports for procedures using fluoroscopy that document radiation exp osure indices, or exposure time and number of fluorographic images (if radiation exposure indices are not available) Please consult full operative report of the attending physician for description of the procedure. TECHNICAL DOCUMENTATION: JOB ID: [id number] [employer]- All Rights Reserved Reading location - IP/workstation name: [email or web address]
--- NOTE | 2019-04-11 08:31 | RADIOLOGY REPORT (SQ) ---
EXAM DESCRIPTION: NO CHG FLUORO; ENDO CATH/BILIARY DUCT COMPLETED DATE/TIME: 04/10/2019 5:24 pm REASON FOR STUDY: ERCP R94.5 ABNORMAL RESULTS OF LIVER FUNCTION STUDIES K80.20 CALCULUS OF GALLBLA DDER W/O CHOLECYSTITIS W/O OBSTRUC COMPARISON: None. FLUOROSCOPY TIME: 4.3 minutes 12 images saved to PACS. TECHNIQUE: Intra-operative images acquired during surgical procedure to evaluate progress. NUMBER OF IMAGES: 12 LIMITATIONS: None. FINDINGS: Intraoperative fluoroscopic images obtained demonstrate evidence of ERCP. There is opacif ication of the biliary tree with evidence of balloon sweep. Please see operative report for detailed description of the procedure. IMPRESSION: IMAGE(S) OBTAINED DURING PROCEDURE. COMMENT: Quality ID 145: Final reports for procedures using fluoroscopy that document radiation exp osure indices, or exposure time and number of fluorographic images (if radiation exposure indices are not available) Please consult full operative report of the attending physician for description of the procedure. TECHNICAL DOCUMENTATION: JOB ID: [id number] [employer]- All Rights Reserved Reading location - IP/workstation name: [email or web address]
== END 2019-04-10 19:10 | disposition home or self-care (01) ==
LOC: OROUT 13:26
PROVIDERS: ATTEND Internal Medicine Gastroenterology
DX: K83.8 Other specified diseases of biliary tract (principal); R94.5 Abnormal results of liver function studies; K86.89 Other specified diseases of pancreas; I25.2 Old myocardial infarction; E89.0 Postprocedural hypothyroidism; E78.00 Pure hypercholesterolemia, unspecified; I10 Essential (primary) hypertension; K76.0 Fatty (change of) liver, not elsewhere classified; Z79.82 Long term (current) use of aspirin; Z79.899 Other long term (current) drug therapy; R10.13 Epigastric pain
CPT/HCPCS: 43264; 43262; 74328; A9270; J2250; J3010; J3490; J0330; J2405; J2704; 732; J1610

== ENCOUNTER → 2019-04-16 | Outpatient (CLI) | payer MEDICARE, OTHER ==
[2019-04-16 10:08] LABS: ALANINE AMINOTRANSFERASE 45 U/L (9-52); ALBUMIN 4.2 g/dL (3.5-5.0); ALKALINE PHOSPHATASE 121 U/L (38-126); ANION GAP 8 (5-19); ASPARTATE AMINO TRANSFERASE 32 U/L (14-36); BILIRUBIN,DIRECT 0.2 mg/dL (0.0-0.4); BILIRUBIN,TOTAL 0.3 mg/dL (0.2-1.3); BLOOD UREA NITROGEN 14 mg/dL (7-20); CALCIUM 9.6 mg/dL (8.4-10.2); CARBON DIOXIDE 29 mmol/L (22-30); CHLORIDE 104 mmol/L (98-107); GLUCOSE 98 mg/dL (75-110); POTASSIUM 4.6 mmol/L (3.6-5.0); SODIUM 141.4 mmol/L (137-145)
== END ==
LOC: OD 08:50
PROVIDERS: ATTEND Internal Medicine Cardiovascular Disease
DX: E03.9 Hypothyroidism, unspecified (principal); R00.2 Palpitations; R94.5 Abnormal results of liver function studies; I10 Essential (primary) hypertension
CPT/HCPCS: 36415; 80048; 80076; 84436; 84443

== ENCOUNTER → 2019-07-30 | Outpatient (CLI) | payer MEDICARE, OTHER ==
--- NOTE | 2019-07-30 12:33 | WOMENS IMAGING REPORT ---
EXAM DESCRIPTION: BILAT SCREENING MAMMO W/CAD COMPLETED DATE/TIME: 07/30/2019 10:06 am REASON FOR STUDY: ROUTINE BILATERAL SCREENING;Z12.31 Z12.31 ENCNTR SCREEN MAMMOGRAM FOR MALIGNANT N EOPLASM OF FELIZ COMPARISON: 2014 to 2017 EXAM PARAMETERS: Standard craniocaudal and mediolateral oblique views of each breast recorded using digital acquisition. Read with the assistance of CAD. [employer] - [employer] Designer Version 9.2 LIMITATIONS: None. FINDINGS: No suspicious masses, suspicious calcifications or architectural distortion. No areas of c oncern. IMPRESSION: Negative MAMMOGRAM. BIRADS 1 BREAST DENSITY: c. The breasts are heterogeneously dense, which may obscure small masses. BIRAD: ASSESSMENT: 1 NEGATIVE RECOMMENDATION: ROUTINE SCREENING COMMENT: The patient has been notified of the results by letter per MQSA requirements. Additional no tification policies are in place for contacting patient with suspicious or incomplete findings. Quality ID #225: The [employer] recommends an annual screening mammogram for women aged 40 years or over. This facility utilizes a reminder system to ensure that all patients receive reminder letters, and/or direct phone calls for appointments. This includes reminders for routine scr eening mammograms, diagnostic mammograms, or other Breast Imaging Interventions when appropriate. Th is patient will be placed in the appropriate reminder system. TECHNICAL DOCUMENTATION: FINDING NUMBER: (1) ASSESSMENT: (1) JOB ID: [id number] [employer]- All Rights Reserved Reading location - IP/workstation name: [email or web address]
== END ==
LOC: WI 09:43
PROVIDERS: ATTEND Physician Assistant Medical
DX: Z12.31 Encounter for screening mammogram for malignant neoplasm of breast (principal)
CPT/HCPCS: 77067

== ENCOUNTER → 2019-10-11 | Outpatient (CLI) | payer MEDICARE, OTHER ==
[2019-10-11 10:21] LABS: ALBUMIN 4.2 g/dL (3.5-5.0); ALKALINE PHOSPHATASE 80 U/L (38-126); ASPARTATE AMINO TRANSFERASE 34 U/L (14-36); BILIRUBIN,DIRECT 0.3 mg/dL (0.0-0.4); BILIRUBIN,TOTAL 0.4 mg/dL (0.2-1.3); CHOLESTEROL 156.28 mg/dL (0-200); TOTAL PROTEIN 7.4 g/dL (6.3-8.2); TRIGLYCERIDES 98 mg/dL (<150)
[2019-10-11 10:32] LABS: DIRECT LDL 84 mg/dL (<100)
== END ==
LOC: OD 09:08
PROVIDERS: ATTEND Internal Medicine Cardiovascular Disease
DX: E78.00 Pure hypercholesterolemia, unspecified (principal); E03.9 Hypothyroidism, unspecified; R94.5 Abnormal results of liver function studies
CPT/HCPCS: 36415; 80061; 80076; 84443

== ENCOUNTER → 2020-04-09 | Outpatient (CLI) | payer MEDICARE, OTHER ==
[2020-04-09 10:27] LABS: HEMATOCRIT 40.4 % (36.0-47.0); HEMOGLOBIN 13.5 g/dL (12.0-15.5); MEAN CORPUSCULAR HGB CONC 33.3 g/dL (32.0-36.0); MEAN CORPUSCULAR VOLUME 93 fl (80-97); PLATELET COUNT 177 10^3/uL (150-450); RED BLOOD COUNT 4.34 10^6/uL (3.72-5.28); RED CELL DISTRIBUTION WIDTH 13.3 % (11.5-14.0); WHITE BLOOD COUNT 4.5 10^3/uL (4.0-10.5)
[2020-04-09 10:49] LABS: ALBUMIN 4.4 g/dL (3.5-5.0); ALKALINE PHOSPHATASE 68 U/L (38-126); ANION GAP 6 (5-19); ASPARTATE AMINO TRANSFERASE 31 U/L (14-36); BILIRUBIN,TOTAL 0.4 mg/dL (0.2-1.3); BLOOD UREA NITROGEN 16 mg/dL (7-20); CALCIUM 10.2 mg/dL (8.4-10.2); CARBON DIOXIDE 31 mmol/L (22-30); CHLORIDE 102 mmol/L (98-107); CHOLESTEROL 154.15 mg/dL (0-200); GLUCOSE 97 mg/dL (75-110); POTASSIUM 4.6 mmol/L (3.6-5.0); TOTAL PROTEIN 7.5 g/dL (6.3-8.2); TRIGLYCERIDES 106 mg/dL (<150)
[2020-04-09 11:00] LABS: DIRECT LDL 75 mg/dL (<100)
== END ==
LOC: OD 09:18
PROVIDERS: ATTEND Internal Medicine Cardiovascular Disease
DX: E78.00 Pure hypercholesterolemia, unspecified (principal); I10 Essential (primary) hypertension; E03.9 Hypothyroidism, unspecified; Z79.899 Other long term (current) drug therapy
CPT/HCPCS: 36415; 80048; 80061; 80076; 84443; 85027

== ENCOUNTER → 2020-04-30 | Outpatient (CLI) | payer MEDICARE, OTHER ==
[2020-04-30 11:22] LABS: FREE T3 3.17 pg/mL (2.77-5.27); FREE T4 (FREE THYROXINE) 0.66 ng/dL (0.78-2.19)
[2020-04-30 11:35] LABS: THYROID STIMULATING HORMONE 3.33 uIU/mL (0.47-4.68)
== END ==
LOC: OD 10:19
PROVIDERS: ATTEND Internal Medicine Cardiovascular Disease
DX: E03.9 Hypothyroidism, unspecified (principal); R00.2 Palpitations
CPT/HCPCS: 36415; 84439; 84443; 84481

== ENCOUNTER → 2020-07-31 | Outpatient (CLI) | payer MEDICARE, OTHER ==
--- NOTE | 2020-07-31 12:31 | WOMENS IMAGING REPORT ---
EXAM DESCRIPTION: 3D SCREENING MAMMO BILAT IMAGES COMPLETED DATE/TIME: 07/31/2020 11:04 am REASON FOR STUDY: Z12.31 ENCNTR SCREEN MAMMOGRAM FOR MALIGNANT NEOPLASM OF BREAST Z12.31 ENCNTR SCR EEN MAMMOGRAM FOR MALIGNANT NEOPLASM OF FELIZ COMPARISON: Priors back to 2017 EXAM PARAMETERS: Views: Standard craniocaudal and mediolateral oblique views of each breast recorded using digital acquisition and breast tomosynthesis. Read with the assistance of CAD. .[facility] - [employer] Manager Version 9.2 LIMITATIONS: None. FINDINGS: No suspicious masses, suspicious calcifications or architectural distortion. No areas of c oncern. IMPRESSION: NEGATIVE MAMMOGRAM. BIRADS 1. BREAST DENSITY: b. There are scattered areas of fibroglandular density. BIRAD: ASSESSMENT: 1 NEGATIVE RECOMMENDATION: ROUTINE SCREENING COMMENT: The patient has been notified of the results by letter per MQSA requirements. Additional no tification policies are in place for contacting patient with suspicious or incomplete findings. Quality ID #225: The [employer] recommends an annual screening mammogram for women aged 40 years or over. This facility utilizes a reminder system to ensure that all patients receive reminder letters, and/or direct phone calls for appointments. This includes reminders for routine scr eening mammograms, diagnostic mammograms, or other Breast Imaging Interventions when appropriate. Th is patient will be placed in the appropriate reminder system. TECHNICAL DOCUMENTATION: FINDING NUMBER: (1) ASSESSMENT: (1) JOB ID: [id number] [employer]- All Rights Reserved Reading location - IP/workstation name: [email or web address]
== END ==
LOC: WI 10:23
PROVIDERS: ATTEND Nurse Practitioner Family
DX: Z12.31 Encounter for screening mammogram for malignant neoplasm of breast (principal)
CPT/HCPCS: 77063; 77067

== ENCOUNTER → 2020-08-25 | Outpatient (CLI) | payer MEDICARE, OTHER ==
[2020-08-25 10:38] LABS: HEMATOCRIT 35.1 % (36.0-47.0); HEMOGLOBIN 11.8 g/dL (12.0-15.5); MEAN CORPUSCULAR HEMOGLOBIN 30.5 pg (27.0-33.4); MEAN CORPUSCULAR HGB CONC 33.5 g/dL (32.0-36.0); MEAN CORPUSCULAR VOLUME 91 fl (80-97); PLATELET COUNT 166 10^3/uL (150-450); RED BLOOD COUNT 3.86 10^6/uL (3.72-5.28); RED CELL DISTRIBUTION WIDTH 13.4 % (11.5-14.0)
[2020-08-25 11:02] LABS: ALBUMIN 4.2 g/dL (3.5-5.0); ALKALINE PHOSPHATASE 77 U/L (38-126); ANION GAP 9 (5-19); ASPARTATE AMINO TRANSFERASE 32 U/L (14-36); BILIRUBIN,TOTAL 0.5 mg/dL (0.2-1.3); BLOOD UREA NITROGEN 21 mg/dL (7-20); CALCIUM 9.4 mg/dL (8.4-10.2); CARBON DIOXIDE 26 mmol/L (22-30); CHLORIDE 107 mmol/L (98-107); CHOLESTEROL 154.05 mg/dL (0-200); GLUCOSE 93 mg/dL (75-110); POTASSIUM 4.4 mmol/L (3.6-5.0); TRIGLYCERIDES 92 mg/dL (<150)
[2020-08-25 11:12] LABS: DIRECT LDL 75 mg/dL (<100)
== END ==
LOC: OD 10:01
PROVIDERS: ATTEND Internal Medicine Cardiovascular Disease
DX: I10 Essential (primary) hypertension (principal); E78.00 Pure hypercholesterolemia, unspecified; E03.9 Hypothyroidism, unspecified; Z79.899 Other long term (current) drug therapy
CPT/HCPCS: 36415; 80048; 80061; 80076; 84443; 85027